=== PATIENT | male | born 1990 | race Caucasian/White ===

== ENCOUNTER → 2018-07-20 11:22 | Outpatient (CLI) | payer MEDICAID, SELFPAY ==
[2018-07-20 13:52] LABS: Hematocrit 43.9 % (40-54); Hemoglobin 14.8 g/dl (13.0-16.5); Mean Corp Hgb Conc 33.7 g/gl (32-36); Mean Corpuscular Volume 83.1 fL (80-94); Mean Platelet Vol. 9.6 fl (6.2-12.0); Platelet Count 199 K/mm3 (150-450); RBC Distribution Width CV 12.8 % (11.6-14.6); RBC Distribution Width SD 38.8 fl (35.1-43.9); Red Blood Count 5.28 M/mm3 (4.6-6.2); White Blood Count 6.5 K/mm3 (4.4-11.0)
[2018-07-20 13:55] LABS: Scan Indicated on CBC? Y/N NO
[2018-07-20 14:15] LABS: AST(SGOT) 44 U/L (15-37); Alanine Aminotransfer ALT/SGPT 85 U/L (16-61); Albumin, Serum 3.9 g/dL (3.2-5.0); Alkaline Phosphatase 54 U/L (45-117); Anion Gap 11 (5-15); BUN 15 mg/dL (7-18); BUN/Creat Ratio 13.6 RATIO (10-20); Calcium,Total 8.8 mg/dL (8.5-10.1); Chloride 104 mmol/L (98-107); Cholesterol 215 mg/dL (200); EST Glomerular Filtration Rate 86 mL/min (>60); Est Glom Filt Rate - Afr Amer 104 mL/min (>60); Globulin 3.9 g/dL (2.2-4.2); Glucose 75 mg/dL (74-106); High Density Lipoprotein 39 mg/dL; Potassium 3.7 mmol/L (3.5-5.1); Protein, Total 7.8 g/dL (6.4-8.2); Sodium Level 143 mmol/L (136-145); Triglycerides 195 mg/dL; Very Low Density Lipoprotein 39 mg/dL (5-40)
== END ==
LOC: MTRAD 11:28 → MTLAB 11:31
PROVIDERS: Family Provider Family Medicine; PCP Family Medicine; Referring Provider Family Medicine; Visit Provider Family Medicine
DX: Z00.00 Encounter for general adult medical examination without abnormal findings (principal); G40.909 Epilepsy, unspecified, not intractable, without status epilepticus
CPT/HCPCS: 36415; 80053; 80061; 85027

== ENCOUNTER 2018-08-15 21:52 | Observation (INO) | payer MEDICAID, SELFPAY ==
[2018-08-15 21:52] VITALS: BP 161/103; PULSE 116; RESP 19; TEMP 36.1; O2SAT 98; BMI 40.8
[2018-08-15 22:00] VITALS: O2SAT 97
[2018-08-15 22:08] VITALS: TEMP 37.4
--- NOTE | 2018-08-15 22:16 | EKG12_ITS ---
Test Reason : COLD SX Blood Pressure : / mmHG Vent. Rate : 106 BPM Atrial Rate : 106 BPM P-R Int : 178 ms QRS Dur : 092 ms QT Int : 332 ms P-R-T Axes : 009 116 010 degrees QTc Int : 441 ms Sinus tachycardia Possible Left atrial enlargement Right axis deviation Incomplete right bundle branch block Possible Right ventricular hypertrophy Abnormal ECG Confirmed by JAY LYLE, TATIANA ([id number]), publishing editor KATELYN MALDONADO ([id number]) on 08/17/2018 2:19:11 PM Referred By: [email or web address] Confirmed By:TATIANA THOMPSON MD
--- NOTE | 2018-08-15 22:20 | ED.DCSUM_ITS ---
- ER Visit Summary Date of Service: 08/15/18 Chief Complaint: Shortness of breath History of Present Illness: The patient is a 27 M who presents for shortness of breath. Yesterday evening patient developed a headache and a fever. Today he is feeling short of breath, and has had a cough productive of brown and green sputum. Patient has associated chest pain, palpitations and feels like his heart is racing. He has been nauseated. He has had a runny nose but denies sore throat or abdominal pain. No urinary symptoms or diarrhea. Patient has history of hypertension, seizure disorder, neuropathy, and takes Geodon, gabapentin and Lamictal. Physical Examination: Vital signs: afebrile, hemodynamically stable, 92% on room air General: well nourished, well developed, in no distress Skin: warm, dry, no rash, no pallor HEENT: normocephalic and atraumatic; PERRL, EOMI, dry mucous membranes, no oropharyngeal lesions or posterior oropharyngeal swelling or exudates noted Cardiovascular: Tachycardic rate and rhythm without murmurs, no peripheral edema, 2+ pulses all distal extremities Respiratory: No increased work of breathing, lungs are diminished on the right, no rales, rhonchi or wheezing appreciated Abdominal: Abdomen is soft, nontender with normoactive bowel sounds, no guarding or rebound, no masses MSK: Moves all extremities, no deformities, normal strength Neuro: Awake and alert, oriented ?4. No facial droop, sensation and motor function intact and symmetric Test Results: Abnormal Lab Results 08/15/18 08/15/18 08/15/18 22:29 22:29 22:29 WBC 13.0 H RBC 5.33 Hgb 15.0 Hct 44.5 MCV 83.5 MCH 28.1 MCHC 33.7 RDW 12.8 RDW Differential 38.5 Plt Count 159 MPV 9.4 Immature Gran % (Auto) 0.200 Neut % (Auto) 72.6 H Lymph % (Auto) 12.7 L [place] % (Auto) 10.6 H Eos % (Auto) 3.7 Baso % (Auto) 0.2 Absolute Neuts (auto) 9.4 H Absolute Lymphs (auto) 1.65 Total Counted Not Reportable PT 12.6 INR 0.9 APTT 29.6 Sodium 138 Potassium 3.5 Chloride 105 Carbon Dioxide 25.0 Anion Gap 8 BUN 8 Creatinine 0.96 Estim Creat Clear Calc 132.94 Est GFR (MDRD) Af Amer 122 Est GFR (MDRD) Non-Af 101 BUN/Creatinine Ratio 8.3 L Glucose 98 Lactic Acid Calcium 8.6 Total Bilirubin 0.50 AST 27 ALT 55 Alkaline Phosphatase 64 Troponin I < 0.015 Total Protein 8.0 Albumin 3.9 Globulin 4.1 Albumin/Globulin Ratio 1.0 08/15/18 22:29 WBC RBC Hgb Hct MCV MCH MCHC RDW RDW Differential Plt Count MPV Immature Gran % (Auto) Neut % (Auto) Lymph % (Auto) [place] % (Auto) Eos % (Auto) Baso % (Auto) Absolute Neuts (auto) Absolute Lymphs (auto) Total Counted PT INR APTT Sodium Potassium Chloride Carbon Dioxide Anion Gap BUN Creatinine Estim Creat Clear Calc Est GFR (MDRD) Af Amer Est GFR (MDRD) Non-Af BUN/Creatinine Ratio Glucose Lactic Acid 1.3 Calcium Total Bilirubin AST ALT Alkaline Phosphatase Troponin I Total Protein Albumin Globulin Albumin/Globulin Ratio Clinical Impression(s) from Imaging Studies Chest X-Ray 08/15/18 22:35 IMPRESSION: Mild cardiomegaly and pulmonary congestion. Electronically Signed: Fernanda Espinoza MD at 0:33 EST , Service support , Chest CTA 08/16/18 01:00 IMPRESSION: 1. Technically limited enhancement of the pulmonary arteries. 2. No CTA demonstrated large or central pulmonary embolism or arterial dissection. 3. Subsegmental pulmonary emboli are not excluded. 4. Cardiomegaly. Electronically Signed: Fernanda Espinoza MD at 2:09 EST , Service support , Medications Given Sodium Chloride () 1,000 mls @ 999 mls/hr IV .Q1H1M CANDICE Last Admin: 08/15/18 22:46 Dose: 999 mls/hr Discontinued Medications Enoxaparin Sodium (Lovenox) 120 mg SC X1 ONE Stop: 08/16/18 02:20 Emergency Department Course and Treatment: Patient presents tachycardic complaining of shortness of breath and fever at home. Oxygen saturation 92% on room air. Patient was placed on nasal cannula. Patient had leukocytosis of 13. Troponin negative. EKG showed a right bundle branch morphology, rate of 106. Lactate normal at 1.3. Flu negative. Chest x-ray showed cardiomegaly and pulmonary prominence, without any sign of pneumonia. Because patient is tachycardic, short of breath, and borderline hypoxic at rest with the chest x- ray findings and a right heart strain pattern on EKG, CTA was performed to evaluate for pulmonary embolism. It was a suboptimal contrast bolus and showed no obvious pulmonary embolism, but PE could not be excluded. Patient was empirically treated with Lovenox. He remains short of breath, tachypneic, borderline tachycardic, and O2 sat at rest 91-93%. Patient will benefit from admission for further workup of his symptoms and concern for pulmonary embolism versus respiratory infection. Because of no sign of pneumonia, antibiotics were not empirically started. Treatment Plan: [] Disposition: [] Impression: Shortness of breath, hypoxia, concern for pulmonary embolism This note was generated with [employer] dictation software. It may contain incorrect words, spelling, and punctuation that were not noted in review of the chart prior to signing ED Disposition - Plan for ED Patient: Chief Complaint: Cold Sx Referrals: Pavan Maharaj MD [Primary Care Provider] -
--- NOTE | 2018-08-15 22:27 | ED.RN ---
NO OLD EKGS IN MUSE
--- NOTE | 2018-08-15 22:35 | RAD_ITS ---
STUDY: X-RAY CHEST REASON FOR EXAM: Male, 27 years old. Shortness of breath. TECHNIQUE: PA and lateral views of the chest. COMPARISON: June 10, 2013. FINDINGS: The lungs are mildly underexpanded. There is perihilar interstitial thickening. There is no demonstrated pleural abnormality. There is mild cardiac enlargement. Normal mediastinum and julián. There is prominence of the pulmonary hilar arteries without peripheral pulmonary vascular congestion. Normal visualized aortic arch and descending thoracic aorta. Normal visualized thoracic spine. Normal visualized ribs, clavicles, and shoulders. There is no demonstrated abnormality of the visualized soft tissue structures of the upper abdomen. RAD/Chest PA and Lateral IMPRESSION: Mild cardiomegaly and pulmonary congestion. Electronically Signed: Fernanda Espinoza MD at 0:33 EST , Service support ,
[2018-08-15 22:39] VITALS: BP 152/98; PULSE 104; RESP 15; O2SAT 92
[2018-08-15 22:41] LABS: Absolute Lymphocyte Count 1.65 X10^3/ul (0.83-4.51); Absolute Neutrophil Count 9.4 X10^3/uL (2.0-7.7); Basophil# 0.02 X10^3/uL; Basophil% 0.2 % (0-1); Eosinophil# 0.48 X10^3/uL; Eosinophils% 3.7 % (0-5); Hematocrit 44.5 % (40-54); Lymphocyte # 1.65 X10^3/ul (4.0); Lymphocyte % 12.7 % (19-41); Mean Corp Hgb Conc 33.7 g/gl (32-36); Mean Corpuscular Hgb 28.1 pg (27.0-32.0); Mean Corpuscular Volume 83.5 fL (80-94); Mean Platelet Vol. 9.4 fl (6.2-12.0); Monocyte# 1.38 X10^3/uL; Monocyte% 10.6 % (0-10); Neutrophil # 9.44 X10^3/uL (2.7-7.7); Neutrophil % 72.6 % (47-70); Platelet Count 159 K/mm3 (150-450); RBC Distribution Width CV 12.8 % (11.6-14.6); RBC Distribution Width SD 38.5 fl (35.1-43.9); Red Blood Count 5.33 M/mm3 (4.6-6.2)
[2018-08-15] MEDS: 0.9% Normal Saline 1,000 ML 999 ML IV (22:46)
[2018-08-15 22:54] LABS: POSITIVE COUNT NO; POSITIVE DIFFERENTIAL NO; POSITIVE MORPHOLOGY NO
[2018-08-15 22:57] LABS: AST(SGOT) 27 U/L (15-37); Alanine Aminotransfer ALT/SGPT 55 U/L (16-61); Albumin, Serum 3.9 g/dL (3.2-5.0); Alkaline Phosphatase 64 U/L (45-117); Anion Gap 8 (5-15); BUN 8 mg/dL (7-18); BUN/Creat Ratio 8.3 RATIO (10-20); Calcium,Total 8.6 mg/dL (8.5-10.1); Chloride 105 mmol/L (98-107); Creatinine, Serum 0.96 mg/dL (0.70-1.30); EST Glomerular Filtration Rate 101 mL/min (>60); Est Glom Filt Rate - Afr Amer 122 mL/min (>60); Estimated Creatinine Clearance 132.94 ml/min; Globulin 4.1 g/dL (2.2-4.2); Glucose 98 mg/dL (74-106); Potassium 3.5 mmol/L (3.5-5.1); Sodium Level 138 mmol/L (136-145)
[2018-08-15 22:58] LABS: International Normalized Ratio 0.9; Prothrombin Time (Protime)PT. 12.6 SECONDS (11.7-14.9)
[2018-08-15 22:59] LABS: Partial Thromboplast Time 29.6 Seconds (24.1-36.2)
[2018-08-15 23:37] LABS: Lactic Acid 1.3 mmol/L (0.4-2.0)
[2018-08-16] VITALS (19 sets, daily range): BP systolic 128–153; BP diastolic 79–106; PULSE 75–101; RESP 16–22; TEMP 36.7–37.1; O2SAT 92–96; BMI 43.9; BMI 44.0
--- NOTE | 2018-08-16 01:00 | CT_ITS ---
STUDY: CTA CHEST REASON FOR EXAM: Male, 27 years old. Dyspnea. RADIATION DOSAGE (If Supplied By Facility): CTDIvol = ( 15.06 ) mGy, DLP = ( 631.14 ) mGycm TECHNIQUE: The examination was performed with the intravenous administration of 100 ml of Isovue 370 contrast material. Post-processing of the angiographic images was performed, with multiplanar reformation and 3D reconstruction. Individualized dose optimization techniques were used for this CT. COMPARISON: Prior comparison studies are not available for review at this time. FINDINGS: There is limited enhancement of the main pulmonary artery and right and left pulmonary arteries. There is limited enhancement of the bilateral peripheral pulmonary arteries. There is no demonstrated larger central pulmonary embolism. Segmental pulmonary emboli are not excluded. There is prominence of the main pulmonary arteries without peripheral pulmonary vascular congestion. Normal thoracic aorta and visualized great vessels. There is no demonstrated aortic dissection. There is cardiomegaly. There are visualized mediastinal lymph nodes, which are within normal size limits, and with normal morphology. Normal hilar regions. Normal visualized trachea and bronchi. The lungs are well expanded. Normal pulmonary parenchyma. Normal pleura. Normal chest wall structures. Normal osseous structures. Normal visualized upper abdomen. CT/CTA Chest W/WO Contrast IMPRESSION: 1. Technically limited enhancement of the pulmonary arteries. 2. No CTA demonstrated large or central pulmonary embolism or arterial dissection. 3. Subsegmental pulmonary emboli are not excluded. 4. Cardiomegaly. Electronically Signed: Fernanda Espinoza MD at 2:09 EST , Service support ,
--- NOTE | 2018-08-16 02:22 | PCM.HP.STD ---
Problem List (1) Acute viral syndrome Status: Acute (2) Elevated BP without diagnosis of hypertension Status: Acute (3) Morbid obesity Status: Chronic (4) BERRY (obstructive sleep apnea) Status: Chronic (5) Seizure disorder Status: Chronic (6) Asperger's disorder Status: Chronic (7) Anxiety and depression Status: Chronic History of Present Illness Date of Admission: 08/16/18 Chief Complaint: URI symptoms, dyspnea. The patient is a 27 y/o M w/ PMHx: Asperger's, Anxiety and Depression/Bipolar disorder, BERRY, Seizure disorder, GERD, Morbid Obesity who presents to the [facility] ED on 08/16/18 with history of progressively worsening dyspnea, upper respiratory symptoms with productive cough, congestion, rhinorrhea, myalgia, arthralgias as well as fever which initially started this past in addition to onset nausea without emesis and poor appetite/intake on day prior to ED presentation. In the ED work-up included T 96.9, heart rate 116, BP 161/103, respiratory rate 19, 98% on room air--> 92% on room air--> heart rate 97, BP 140/106, respiratory rate 22, 95% on 4 L nasal cannula, CBC with WBC 13, hemoglobin 15, platelet 159 with left shift, unremarkable coags, unremarkable CMP, lactic acid 1.3, troponin <0.015, CXR with cardiomegaly and pulmonary congestion, CTPA with limited enhancement of the pulmonary arteries with no evidence of acute PE with suboptimal contract infusion, cardiomegaly, EKG w/ RBBB. In the ED patient administered normal saline, Lovenox. Past Medical History Past Medical History (Chronic Problems): Chronic Problems Morbid obesity (Chronic) BERRY (obstructive sleep apnea) (Chronic) Seizure disorder (Chronic) Asperger's disorder (Chronic) Anxiety and depression (Chronic) Allergies aripiprazole [From Abilify] Adverse Reaction (Verified 08/15/18 21:53) Other cephalexin monohydrate [From Keflex] Adverse Reaction (Verified 08/15/18 21:53) Other Home Medications: Ambulatory Orders Medication Instructions Recorded Lamictal 200 mg PO DAILY 07/24/15 Pantoprazole Sodium [Protonix] 40 mg PO DAILY 07/24/15 Ziprasidone HCl [Geodon] 80 mg PO BID 07/24/15 Fexofenadine HCl 180 mg PO DAILY 08/15/18 Gabapentin [Neurontin] 1 tab PO TID 08/16/18 Lamotrigine [Lamotrigine ER] 300 mg PO DAILY 08/16/18 Surgical History: no surgical history Psychiatric History: Anxiety, Bipolar, Depression Lives: With Family Smoking Status: Never smoker Tobacco Use: Non-smoker Alcohol: None Drugs: None - *Family History Maternal History Items: Heart Disease - Mother w/ history of PAF s/p ablation. Paternal History Items: Hypertension Review of Systems Constitutional: Reports: Anorexia, Fever, Malaise, Weakness, Fatigue. Denies: Chills, Weight Change HEENT: Reports: Head Aches, Post Nasal Drip, Sinus Congestion, Sinus Drainage, Sore Throat Cardiovascular: Reports: Light Headedness, Palpitations. Denies: Chest Pain Respiratory: Reports: Shortness of breath upon exertion, Sputum production. Denies: Shortness of breath at rest Gastrointestinal: Reports: Nausea. Denies: Abdominal Pain, Vomiting Genitourinary: Denies: Dysuria Musculoskeletal: Reports: Back Pain, Joint Pain, Muscle pain. Denies: Joint Tenderness Skin: Denies: Rash, Wounds Neurological: Denies: Numbness, Tingling, Focal weakness Psychiatric: Reports: Anxiety, Depression. Denies: Homicidal Ideations, Suicidal Ideations Hematologic/ Lymphatic: Denies: Easy Bruising, Easy Bleeding VTE Information - Inpt Only VTE Present on Admission: No VTE Mechan Device Prophylaxis: SCD's VTE Pharm Prophylaxis ordered?: Yes Patient Problems: Active and Suspected Problems Acute viral syndrome (Acute) Elevated BP without diagnosis of hypertension (Acute) Subjective: Seated upright in the ED bed, fatigued, flushed, hoarse voice. Objective: Physical Examination: General: awake, alert, oriented x 3 and cooperative, seated upright in the ED bed, fatigued, flushed appearance. Skin: Flushed color, turgor, no icterus, cyanosis. HEENT: AT/NC, EOMI, PERRLA, dry MM, no carotid bruits or JVD noted. Lungs: Diminished breath sounds throughout, greater bilateral bases, mild effort, no rales, ronchi or wheezing. Heart: Tachycardic with regular rhythm; no gallop, rub audible. Abdomen: soft, obese, NTTP, ND, normal BS, no HSM; ever, habitus makes examination difficult. Extremities: no cyanosis, clubbing, or edema. Neurological: patient awake, alert, oriented x 3; cognitive function intact; pupils equally reactive to light and accomodation; cranial nerves II-XII grossly normal, moving all 4 extremities, no focal deficits, strength moderately to severely globally decreased secondary to acute presentation Psychiatric: affect appears fatigued, irritable, no acute evidence of depressive or anxiety feelings. - Physical Exam Vital Signs Temp Pulse Resp BP Pulse Ox 99.3 F H 97 22 H 140/106 H 95 08/15/18 22:08 08/16/18 00:20 08/16/18 00:20 08/16/18 00:20 08/16/18 00:20 Oxygen Flow Rate (L/min) 4 Oxygen Delivery Method Nasal Cannula Weight: 310 lb Body Mass Index (BMI) 40.8 Microbiology Past 72 Hours 08/16/18 01:05 Influenza Types A,B Direct FA (PHUONG) - Final Mucosa - Nasopharyngeal Laboratory Tests Past 24 Hrs 08/15/18 08/15/18 08/15/18 22:29 22:29 22:29 WBC 13.0 H RBC 5.33 Hgb 15.0 Hct 44.5 MCV 83.5 MCH 28.1 MCHC 33.7 RDW 12.8 RDW Differential 38.5 Plt Count 159 MPV 9.4 Immature Gran % (Auto) 0.200 Neut % (Auto) 72.6 H Lymph % (Auto) 12.7 L [place] % (Auto) 10.6 H Eos % (Auto) 3.7 Baso % (Auto) 0.2 Absolute Neuts (auto) 9.4 H Absolute Lymphs (auto) 1.65 Total Counted Not Reportable PT 12.6 INR 0.9 APTT 29.6 Sodium 138 Potassium 3.5 Chloride 105 Carbon Dioxide 25.0 Anion Gap 8 BUN 8 Creatinine 0.96 Estim Creat Clear Calc 132.94 Est GFR (MDRD) Af Amer 122 Est GFR (MDRD) Non-Af 101 BUN/Creatinine Ratio 8.3 L Glucose 98 Lactic Acid Calcium 8.6 Total Bilirubin 0.50 AST 27 ALT 55 Alkaline Phosphatase 64 Troponin I < 0.015 Total Protein 8.0 Albumin 3.9 Globulin 4.1 Albumin/Globulin Ratio 1.0 08/15/18 22:29 WBC RBC Hgb Hct MCV MCH MCHC RDW RDW Differential Plt Count MPV Immature Gran % (Auto) Neut % (Auto) Lymph % (Auto) [place] % (Auto) Eos % (Auto) Baso % (Auto) Absolute Neuts (auto) Absolute Lymphs (auto) Total Counted PT INR APTT Sodium Potassium Chloride Carbon Dioxide Anion Gap BUN Creatinine Estim Creat Clear Calc Est GFR (MDRD) Af Amer Est GFR (MDRD) Non-Af BUN/Creatinine Ratio Glucose Lactic Acid 1.3 Calcium Total Bilirubin AST ALT Alkaline Phosphatase Troponin I Total Protein Albumin Globulin Albumin/Globulin Ratio Assessment/Plan All Active Problems Acute viral syndrome (Acute) Elevated BP without diagnosis of hypertension (Acute) The patient is a 27 y/o M w/ PMHx: Asperger's, Anxiety and Depression, BERRY, Seizure disorder, GERD, Morbid Obesity who presents to the [facility] ED on 08/16/18 with history of progressively worsening dyspnea, upper respiratory symptoms with productive cough, congestion, rhinorrhea, myalgia, arthralgias as well as fever. (1) Acute Sepsis secondary to General Malaise, Cough, Fever, General Debility secondary to Acute Viral Syndrome, Possibly Influenza: ED work-up included T 96.9, heart rate 116, BP 161/103, respiratory rate 19, 98% on room air--> 92% on room air--> heart rate 97, BP 140/106, respiratory rate 22, 95% on 4 L nasal cannula, CBC with WBC 13, hemoglobin 15, platelet 159 with left shift, unremarkable coags, unremarkable CMP, lactic acid 1.3, troponin <0.015, CXR with cardiomegaly and pulmonary congestion, CTPA with limited enhancement of the pulmonary arteries with no evidence of acute PE with suboptimal contract infusion, cardiomegaly, EKG w/ RBBB, rapid influenza negative. Will admit to PCU given need to potentially repeat CTPA as poor enhancement, maintain on oxygen with wean as tolerated, continue ATC duonebs, PRN albuterol, HOB, IS parameters w/ pending Bld cx x 2 from ED. Respiratory viral panel requested. (2) Possible Pulmonary Embolism, Lower suspicion for acute presentation: CTPA with limited enhancement of the pulmonary arteries with no evidence of acute PE, cardiomegaly, given suboptimal study, will continue ED initiated therapeutic lovenox pending further evaluation for above noted #1, BL LE DVT US pending. If further concern true PE will plan to add ECHO request. (3) Elevated BP without Dx HTN: ED presentation w/ elevated BP > 140/90, continue to monitor and if remains elevated would initiate ACEI, PRN hydralazine in interim. (4) Seizure disorder: Continue home lamotrigine regimen. (5) Morbid Obesity: Weight loss and lifestyle changes encouraged, nutrition consulted. (6) Anxiety and Depression/Bipolar disorder: Continue home geodon regimen. Family does not that he does have anger and psychotic tendencies. (7) BERRY: CPAP q HS. (8) GERD: PPI. (9) DVT Prophylaxis: SCDs, therapeutic lovenox. Code Visit OBSV E&M: [id number] Initial observation care L3
--- NOTE | 2018-08-16 02:32 | HP.PCM_ITS ---
Problem List (1) Acute viral syndrome Status: Acute (2) Elevated BP without diagnosis of hypertension Status: Acute (3) Morbid obesity Status: Chronic (4) BERRY (obstructive sleep apnea) Status: Chronic (5) Seizure disorder Status: Chronic (6) Asperger's disorder Status: Chronic (7) Anxiety and depression Status: Chronic History of Present Illness Date of Admission: 08/16/18 Chief Complaint: URI symptoms, dyspnea. The patient is a 27 y/o M w/ PMHx: Asperger's, Anxiety and Depression/Bipolar disorder, BERRY, Seizure disorder, GERD, Morbid Obesity who presents to the [facility] ED on 08/16/18 with history of progressively worsening dyspnea, upper respiratory symptoms with productive cough, congestion, rhinorrhea, myalgia, arthralgias as well as fever which initially started this past in addition to onset n ausea without emesis and poor appetite/intake on day prior to ED presentation. In the ED work-up included T 96.9, heart rate 116, BP 161/103, respiratory rate 19, 98% on room air--> 92% on room air--> heart rate 97, BP 140/106, respiratory rate 22, 95% on 4 L nasal cannula, CBC with WBC 13, hemoglobin 15, platelet 159 with left shift, unremarkable coags, unremarkable CMP, lactic acid 1.3, troponin <0.015, CXR with cardiomegaly and pulmonary congestion, CTPA with limited enhancement of the pulmonary arteries with no evidence of acute PE with suboptimal contract infusion, cardiomegaly, EKG w/ RBBB. In the ED patient administered normal saline, Lovenox. Past Medical History Past Medical History (Chronic Problems): Chronic Problems Morbid obesity (Chronic) BERRY (obstructive sleep apnea) (Chronic) Seizure disorder (Chronic) Asperger's disorder (Chronic) Anxiety and depression (Chronic) Allergies aripiprazole [From Abilify] Adverse Reaction (Verified 08/15/18 21:53) Other cephalexin monohydrate [From Keflex] Adverse Reaction (Verified 08/15/18 21:53) Other Home Medications: Ambulatory Orders Medication Instructions Recorded Lamictal 200 mg PO DAILY 07/24/15 Pantoprazole Sodium [Protonix] 40 mg PO DAILY 07/24/15 Ziprasidone HCl [Geodon] 80 mg PO BID 07/24/15 Fexofenadine HCl 180 mg PO DAILY 08/15/18 Gabapentin [Neurontin] 1 tab PO TID 08/16/18 Lamotrigine [Lamotrigine ER] 300 mg PO DAILY 08/16/18 Surgical History: no surgical history Psychiatric History: Anxiety, Bipolar, Depression Lives: With Family Smoking Status: Never smoker Tobacco Use: Non-smoker Alcohol: None Drugs: None - *Family History Maternal History Items: Heart Disease - Mother w/ history of PAF s/p ablation. Paternal History Items: Hypertension Review of Systems Constitutional: Reports: Anorexia, Fever, Malaise, Weakness, Fatigue. Denies: Chills, Weight Change HEENT: Reports: Head Aches, Post Nasal Drip, Sinus Congestion, Sinus Drainage, Sore Throat Cardiovascular: Reports: Light Headedness, Palpitations. Denies: Chest Pain Respiratory: Reports: Shortness of breath upon exertion, Sputum production. Denies: Shortness of breath at rest Gastrointestinal: Reports: Nausea. Denies: Abdominal Pain, Vomiting Genitourinary: Denies: Dysuria Musculoskeletal: Reports: Back Pain, Joint Pain, Muscle pain. Denies: Joint Tenderness Skin: Denies: Rash, Wounds Neurological: Denies: Numbness, Tingling, Focal weakness Psychiatric: Reports: Anxiety, Depression. Denies: Homicidal Ideations, Suicidal Ideations Hematologic/ Lymphatic: Denies: Easy Bruising, Easy Bleeding VTE Information - Inpt Only VTE Present on Admission: No VTE Mechan Device Prophylaxis: SCD's VTE Pharm Prophylaxis ordered?: Yes Patient Problems: Active and Suspected Problems Acute viral syndrome (Acute) Elevated BP without diagnosis of hypertension (Acute) Subjective: Seated upright in the ED bed, fatigued, flushed, hoarse voice. Objective: Physical Examination: General: awake, alert, oriented x 3 and cooperative, seated upright in the ED bed, fatigued, flushed appearance. Skin: Flushed color, turgor, no icterus, cyanosis. HEENT: AT/NC, EOMI, PERRLA, dry MM, no carotid bruits or JVD noted. Lungs: Diminished breath sounds throughout, greater bilateral bases, mild effort, no rales, ronchi or wheezing. Heart: Tachycardic with regular rhythm; no gallop, rub audible. Abdomen: soft, obese, NTTP, ND, normal BS, no HSM; ever, habitus makes examination difficult. Extremities: no cyanosis, clubbing, or edema. Neurological: patient awake, alert, oriented x 3; cognitive function intact; p upils equally reactive to light and accomodation; cranial nerves II-XII grossly normal, moving all 4 extremities, no focal deficits, strength moderately to severely globally decreased secondary to acute presentation Psychiatric: affect appears fatigued, irritable, no acute evidence of depressive or anxiety feelings. - Physical Exam Vital Signs Temp Pulse Resp BP Pulse Ox 99.3 F H 97 22 H 140/106 H 95 08/15/18 22:08 08/16/18 00:20 08/16/18 00:20 08/16/18 00:20 08/16/18 00:20 Oxygen Flow Rate (L/min) 4 Oxygen Delivery Method Nasal Cannula Weight: 310 lb Body Mass Index (BMI) 40.8 Microbiology Past 72 Hours 08/16/18 01:05 Influenza Types A,B Direct FA (PHUONG) - Final Mucosa - Nasopharyngeal Laboratory Tests Past 24 Hrs 08/15/18 08/15/18 08/15/18 22:29 22:29 22:29 WBC 13.0 H RBC 5.33 Hgb 15.0 Hct 44.5 MCV 83.5 MCH 28.1 MCHC 33.7 RDW 12.8 RDW Differential 38.5 Plt Count 159 MPV 9.4 Immature Gran % (Auto) 0.200 Neut % (Auto) 72.6 H Lymph % (Auto) 12.7 L [place] % (Auto) 10.6 H Eos % (Auto) 3.7 Baso % (Auto) 0.2 Absolute Neuts (auto) 9.4 H Absolute Lymphs (auto) 1.65 Total Counted Not Reportable PT 12.6 INR 0.9 APTT 29.6 Sodium 138 Potassium 3.5 Chloride 105 Carbon Dioxide 25.0 Anion Gap 8 BUN 8 Creatinine 0.96 Estim Creat Clear Calc 132.94 Est GFR (MDRD) Af Amer 122 Est GFR (MDRD) Non-Af 101 BUN/Creatinine Ratio 8.3 L Glucose 98 Lactic Acid Calcium 8.6 Total Bilirubin 0.50 AST 27 ALT 55 Alkaline Phosphatase 64 Troponin I < 0.015 Total Protein 8.0 Albumin 3.9 Globulin 4.1 Albumin/Globulin Ratio 1.0 08/15/18 22:29 WBC RBC Hgb Hct MCV MCH MCHC RDW RDW Differential Plt Count MPV Immature Gran % (Auto) Neut % (Auto) Lymph % (Auto) [place] % (Auto) Eos % (Auto) Baso % (Auto) Absolute Neuts (auto) Absolute Lymphs (auto) Total Counted PT INR APTT Sodium Potassium Chloride Carbon Dioxide Anion Gap BUN Creatinine Estim Creat Clear Calc Est GFR (MDRD) Af Amer Est GFR (MDRD) Non-Af BUN/Creatinine Ratio Glucose Lactic Acid 1.3 Calcium Total Bilirubin AST ALT Alkaline Phosphatase Troponin I Total Protein Albumin Globulin Albumin/Globulin Ratio Assessment/Plan All Active Problems Acute viral syndrome (Acute) Elevated BP without diagnosis of hypertension (Acute) The patient is a 27 y/o M w/ PMHx: Asperger's, Anxiety and Depression, BERRY, Seizure disorder, GERD, Morbid Obesity who presents to the [facility] ED on 08/16/18 with history of progressively worsening dyspnea, upper respiratory symptoms with productive cough, congestion, rhinorrhea, myalgia, arthralgias as well as fever. (1) Acute Sepsis secondary to General Malaise, Cough, Fever, General Debility secondary to Acute Viral Syndrome, Possibly Influenza: ED work-up included T 96.9, heart rate 116, BP 161/103, respiratory rate 19, 98% on room air--> 92% on room air--> heart rate 97, BP 140/106, respiratory rate 22, 95% on 4 L nasal cannula, CBC with WBC 13, hemoglobin 15, platelet 159 with left shift, unremarkable coags, unremarkable CMP, lactic acid 1.3, troponin <0.015, CXR with cardiomegaly and pulmonary congestion, CTPA with limited enhancement of the pulmonary arteries with no evidence of acute PE with suboptimal contract infusion, cardiomegaly, EKG w/ RBBB, rapid influenza negative. Will admit to PCU given need to potentially repeat CTPA as poor enhancement, maintain on oxygen with wean as tolerated, continue ATC duonebs, PRN albuterol, HOB, IS parameters w/ pending Bld cx x 2 from ED. Respiratory viral panel requested. (2) Possible Pulmonary Embolism, Lower suspicion for acute presentation: CTPA with limited enhancement of the pulmonary arteries with no evidence of acute PE, cardiomegaly, given suboptimal study, will continue ED initiated therapeutic lovenox pending further evaluation for above noted #1, BL LE DVT US pending. If further concern true PE will plan to add ECHO request. (3) Elevated BP without Dx HTN: ED presentation w/ elevated BP > 140/90, c ontinue to monitor and if remains elevated would initiate ACEI, PRN hydralazine in interim. (4) Seizure disorder: Continue home lamotrigine regimen. (5) Morbid Obesity: Weight loss and lifestyle changes encouraged, nutrition consulted. (6) Anxiety and Depression/Bipolar disorder: Continue home geodon regimen. Family does not that he does have anger and psychotic tendencies. (7) BERRY: CPAP q HS. (8) GERD: PPI. (9) DVT Prophylaxis: SCDs, therapeutic lovenox. Code Visit OBSV E&M: 12066 Initial observation care L3
--- NOTE | 2018-08-16 03:13 | VDLE_ITS ---
Reason For Study: PE RIGHT LEFT GSV is normal. GSV is normal. CFV is compressible, spontaneous, phasic, CFV is compressible, spontaneous, phasic, competent and demonstrates normal competent, and demonstrates normal augmentation. augmentation. FV is compressible, spontaneous, phasic, FV is compressible, spontaneous, phasic, competent and demonstrates normal competent and demonstrates normal augmentation. augmentation. POP V is compressible, spontaneous, phasic, POP V is compressible, spontaneous, phasic, competent and demonstrates normal competent and demonstrates normal augmentation. augmentation. T/P Trunk is compressible. T/P Trunk is compressible. PTV is compressible. PTV is compressible. RT PerV is compressible. LT PerV is compressible. Procedure Exam performed portable in patient room. The exam was diagnostic. A preliminary report was called and/or faxed to [facility]. <> Interpretation Summary No evidence for acute deep venous thrombosis bilateral lower extremities with patent and compressible bilateral great saphenous veins. Ordering Physician: Pricilla Torrez Referring Physician: Yuri Maharaj Performed By: Elsa Fraser, EVERARDO, RVT
[2018-08-16] MEDS: Enoxaparin 150 MG/ML Syringe SC (04:13)
[2018-08-16] MEDS: 0.9% Normal Saline 1,000 ML 125 ML IV ×2 (04:13→16:46)
--- NOTE | 2018-08-16 04:49 | CPS ---
patient informed RT that he wears cpap at home of 10 cmh20 with large full mask.
[2018-08-16] MEDS: Ipratropium/Albuterol Sulfate 3 ML AMPUL.NEB INHALATION ×4 (07:26→18:55)
[2018-08-16] MEDS: HYDROcodone Bitartrate/Apap 5/325 Tablet PO ×2 (07:54→10:23)
[2018-08-16] MEDS: Gabapentin 100 MG Capsule PO ×2 (08:55→16:59)
[2018-08-16] MEDS: Loratadine 10 MG Tablet PO (08:55)
[2018-08-16] MEDS: Pantoprazole Sodium 40 MG Tablet PO (08:55)
--- NOTE | 2018-08-16 09:24 | NURSING ---
report given to Angela NGUYEN
[2018-08-16] MEDS: 0.9% NaCl Peripheral Flush Adult/Peds IV ×2 (09:50→16:46)
[2018-08-16] MEDS: Ziprasidone HCl 20 MG Capsule 80 MG PO ×2 (10:44→16:59)
--- NOTE | 2018-08-16 12:22 | PCM.PN.HOSP ---
Patient Problems: Active and Suspected Problems Acute viral syndrome (Acute) Elevated BP without diagnosis of hypertension (Acute) Subjective: Patient seen and examined. He has no complaints this morning. He denies fever, chills, cough, chest pain, abdominal pain, diarrhea or vomiting. Review of systems is otherwise negative. labs and vitals reviewed. Vitals/I&O's: Vital Signs Temp Pulse Resp BP Pulse Ox 98.6 F 82 20 H 128/82 H 92 08/16/18 09:21 08/16/18 11:11 08/16/18 11:11 08/16/18 09:21 08/16/18 09:21 Oxygen Flow Rate (L/min) 4 Oxygen Delivery Method Room Air Weight: 315 lb 7.704 oz Body Mass Index (BMI) 43.9 Intake and Output for Last 24 Hours 08/14/18 08/15/18 08/16/18 23:59 23:59 23:59 Intake Total 510 / 510 Balance 510 / 510 General: Alert, Oriented x3, Cooperative, No apparent distress HEENT: Atraumatic, PERRLA, EOMI, Normocephalic Oral: Moist Mucosa Neck: Supple, No JVD, Negative Carotid Bruits Lungs: Clear to auscultation, Normal air movement, No rhonchi, No wheeze, No rales Cardiovascular: Regular rate, Regular Rhythm, Normal S1, Normal S2, No murmurs Abdomen: Bowel Sounds Present, Soft, Non Tender, Non-Distended, No Hepato-splenomegaly Extremities: No clubbing, No cyanosis, No edema, Capillary Refill Less than 3 Seconds Skin: No rashes, No breakdown Musculoskeletal: No Tenderness to Palpation of Joints or Extremities Lymphatic: No Cervical, Supraclavicular, or Inguinal Adenopathy Neurological: Cranial nerves II-XII grossly intact, Neuro grossly intact, Motor Exam 5/5 strength throughout Psych/Mental Status: Normal Affect, Appropriate, Alert and oriented to time, place, person, mood and affect Microbiology Past 72 Hours 08/16/18 02:45 Mucosa - Nasopharyngeal Respiratory Panel (PCR) - Final Rhinovirus 08/16/18 01:05 Mucosa - Nasopharyngeal Influenza Types A,B Direct FA (PHUONG) - Final Laboratory Results 08/15/18 22:28: Magnesium 2.0 08/15/18 22:29: WBC 13.0 H, RBC 5.33, Hgb 15.0, Hct 44.5, MCV 83.5, MCH 28.1, MCHC 33.7, RDW 12.8, RDW Differential 38.5, Plt Count 159, MPV 9.4, Immature Gran % (Auto) 0.200, Neut % (Auto) 72.6 H, Lymph % (Auto) 12.7 L, [place] % (Auto) 10.6 H, Eos % (Auto) 3.7, Baso % (Auto) 0.2, Absolute Neuts (auto) 9.4 H, Absolute Lymphs (auto) 1.65, Total Counted Not Reportable 08/15/18 22:29: PT 12.6, INR 0.9, APTT 29.6 08/15/18 22:29: Sodium 138, Potassium 3.5, Chloride 105, Carbon Dioxide 25.0, Anion Gap 8, BUN 8, Creatinine 0.96, Estim Creat Clear Calc 132.94, Est GFR (MDRD) Af Amer 122, Est GFR (MDRD) Non-Af 101, BUN/Creatinine Ratio 8.3 L, Glucose 98, Calcium 8.6, Total Bilirubin 0.50, AST 27, ALT 55, Alkaline Phosphatase 64, Troponin I < 0.015, Total Protein 8.0, Albumin 3.9, Globulin 4.1, Albumin/Globulin Ratio 1.0 08/15/18 22:29: Lactic Acid 1.3 Diagnostic Data Chest X-Ray 08/15/18 22:35 IMPRESSION: Mild cardiomegaly and pulmonary congestion. Electronically Signed: Fernanda Espinoza MD at 0:33 EST , Service support , Chest CTA 08/16/18 01:00 IMPRESSION: 1. Technically limited enhancement of the pulmonary arteries. 2. No CTA demonstrated large or central pulmonary embolism or arterial dissection. 3. Subsegmental pulmonary emboli are not excluded. 4. Cardiomegaly. Electronically Signed: Fernanda Espinoza MD at 2:09 EST , Service support , Current Medications Acetaminophen (Tylenol) 650 mg PO Q6H PRN PRN PRN Reason: Non-cardiac pain (mod-severe) Hydrocodone Bitart/Acetaminophen ([place] 5mg-325mg) 1 - 2 tablet PO Q6H PRN PRN PRN Reason: Moderate-severe pain Last Admin: 08/16/18 10:23 Dose: 1 tablet Al Hydroxide/Mg Hydroxide (Mylanta Ii) 30 ml PO Q6H PRN PRN PRN Reason: Gastric burning Albuterol Sulfate (Ventolin Aerosols) 2.5 mg INHALATION Q2H PRN PRN PRN Reason: dyspnea, wheezing Albuterol/Ipratropium (Duoneb) 3 ml INHALATION Q4HWA.RT [facility] Last Admin: 08/16/18 11:11 Dose: 3 ml Enoxaparin Sodium (Lovenox) 150 mg SC Q12@0600,1800 [facility] Last Admin: 08/16/18 04:13 Dose: 150 mg Gabapentin (Neurontin) 100 mg PO 0800,1200,1800 [facility] Guaifenesin (Robitussin) 10 ml PO Q4H PRN PRN PRN Reason: COUGH Hydralazine HCl (Apresoline Iv) 10 mg IV Q4H PRN PRN PRN Reason: SBP > 160 Sodium Chloride () 1,000 mls @ 125 mls/hr IV .Q8H [facility] Last Admin: 08/16/18 04:13 Dose: 125 mls/hr Lamotrigine (Lamictal Xr) 300 mg PO 1800 [facility] Loratadine (Claritin) 10 mg PO DAILY [facility] Last Admin: 08/16/18 08:55 Dose: 10 mg Magnesium Hydroxide (Milk Of Magnesia) 30 ml PO DAILY PRN PRN Reason: Constipation Ondansetron HCl (Zofran) 4 mg IV Q8H PRN PRN PRN Reason: NAUSEA Pantoprazole Sodium (Protonix) 40 mg PO DAILY [facility] Last Admin: 08/16/18 08:55 Dose: 40 mg Promethazine HCl (Phenergan) 12.5 mg IV Q6H PRN PRN PRN Reason: NAUSEA/VOMITING Sodium Chloride () 5 - 30 ml IV UD PRN PRN Reason: SALINE FLUSH Last Admin: 08/16/18 09:50 Dose: 10 ml Ziprasidone (Geodon) 80 mg PO 1000,1800 [facility] Medical Necessity - Tobacco Use Smoking Status: Never smoker Tobacco Use: Non-smoker Assessment/Plan All Active Problems Acute viral syndrome (Acute) Elevated BP without diagnosis of hypertension (Acute) 1. URTI due to rhinovirus infection was admitted with positive SIRS criteria, with cough, fever and general debililty feels better today. SIRS criteria is 1/4 (tachypnea) CXR shoed cardiomegalya nd pulmonary congestion CTPA shwoed no evidence of acute PE with suboptimal contrast infusion; therefore could not exclude a subsegmental pulmonary emboli. continue supportive treatment with breathing treatments and IVF. respiratory panel positive for rhinovirus titrate oxygen to maintain sats>92% 2. ??/PE: CTPE done showed no evidence of acute PE and showed cardiomegaly,a s documented above EKG showed RBBB CXR showed pulmonary congestion BNP was only 6 currently on therapeutic lovenox; low threshold for PE based on history; will stop therapeutic lovenox as patient has low clinical suspicion for PE DUplex of LEs was negative for PE. clinical suspicion is low for PE; will dc therapeutic lovenox. If there's still suspicion for PE, to repeat CTPE tomorrow (machine is broken today) 3. Seizure disorder: on lamictal 4. Elevated BP: BP was in 160s systolic at time of admission. Now down to 128/82. has no diagnosis of hypertension. Will continue monitoring. If it remains persistently high, will initiate BP meds. 5. Anxiety and depression: on geodon. 6. Asperger's syndrome: stable 7. BERRY: On CPAP qhs 8. GERD: on PPI DVT prophylaxis: will stop therapeutic lovenox and start prophylactic dose. Code Visit OBSV E&M: 11559 Subsequent observation care L3
--- NOTE | 2018-08-16 12:37 | PN_ITS ---
Patient Problems: Active and Suspected Problems Acute viral syndrome (Acute) Elevated BP without diagnosis of hypertension (Acute) Subjective: Patient seen and examined. He has no complaints this morning. He denies fever, chills, cough, chest pain, abdominal pain, diarrhea or vomiting. Review of systems is otherwise negative. labs and vitals reviewed. Vitals/I&O's: Vital Signs Temp Pulse Resp BP Pulse Ox 98.6 F 82 20 H 128/82 H 92 08/16/18 09:21 08/16/18 11:11 08/16/18 11:11 08/16/18 09:21 08/16/18 09:21 Oxygen Flow Rate (L/min) 4 Oxygen Delivery Method Room Air Weight: 315 lb 7.704 oz Body Mass Index (BMI) 43.9 Intake and Output for Last 24 Hours 08/14/18 08/15/18 08/16/18 23:59 23:59 23:59 Intake Total 510 / 510 Balance 510 / 510 General: Alert, Oriented x3, Cooperative, No apparent distress HEENT: Atraumatic, PERRLA, EOMI, Normocephalic Oral: Moist Mucosa Neck: Supple, No JVD, Negative Carotid Bruits Lungs: Clear to auscultation, Normal air movement, No rhonchi, No wheeze, No rales Cardiovascular: Regular rate, Regular Rhythm, Normal S1, Normal S2, No murmurs Abdomen: Bowel Sounds Present, Soft, Non Tender, Non-Distended, No Hepato- splenomegaly Extremities: No clubbing, No cyanosis, No edema, Capillary Refill Less than 3 Seconds Skin: No rashes, No breakdown Musculoskeletal: No Tenderness to Palpation of Joints or Extremities Lymphatic: No Cervical, Supraclavicular, or Inguinal Adenopathy Neurological: Cranial nerves II-XII grossly intact, Neuro grossly intact, Motor Exam 5/5 strength throughout Psych/Mental Status: Normal Affect, Appropriate, Alert and oriented to time, place, person, mood and affect Microbiology Past 72 Hours 08/16/18 02:45 Mucosa - Nasopharyngeal Respiratory Panel (PCR) - Final Rhinovirus 08/16/18 01:05 Mucosa - Nasopharyngeal Influenza Types A,B Direct FA (PHUONG) - Final Laboratory Results 08/15/18 22:28: Magnesium 2.0 08/15/18 22:29: WBC 13.0 H, RBC 5.33, Hgb 15.0, Hct 44.5, MCV 83.5, MCH 28.1, MCHC 33.7, RDW 12.8, RDW Differential 38.5, Plt Count 159, MPV 9.4, Immature Gran % (Auto) 0.200, Neut % (Auto) 72.6 H, Lymph % (Auto) 12.7 L, [place] % (Auto) 10.6 H, Eos % (Auto) 3.7, Baso % (Auto) 0.2, Absolute Neuts (auto) 9.4 H, Absolute Lymphs (auto) 1.65, Total Counted Not Reportable 08/15/18 22:29: PT 12.6, INR 0.9, APTT 29.6 08/15/18 22:29: Sodium 138, Potassium 3.5, Chloride 105, Carbon Dioxide 25.0, Anion Gap 8, BUN 8, Creatinine 0.96, Estim Creat Clear Calc 132.94, Est GFR (MDRD) Af Amer 122, Est GFR (MDRD) Non-Af 101, BUN/Creatinine Ratio 8.3 L, Glucose 98, Calcium 8.6, Total Bilirubin 0.50, AST 27, ALT 55, Alkaline Phosphatase 64, Troponin I < 0.015, Total Protein 8.0, Albumin 3.9, Globulin 4.1, Albumin/Globulin Ratio 1.0 08/15/18 22:29: Lactic Acid 1.3 Diagnostic Data Chest X-Ray 08/15/18 22:35 IMPRESSION: Mild cardiomegaly and pulmonary congestion. Electronically Signed: Fernanda Espinoza MD at 0:33 EST , Service support , Chest CTA 08/16/18 01:00 IMPRESSION: 1. Technically limited enhancement of the pulmonary arteries. 2. No CTA demonstrated large or central pulmonary embolism or arterial dissection. 3. Subsegmental pulmonary emboli are not excluded. 4. Cardiomegaly. Electronically Signed: Fernanda Espinoza MD at 2:09 EST , Service support , Current Medications Acetaminophen (Tylenol) 650 mg PO Q6H PRN PRN PRN Reason: Non-cardiac pain (mod-severe) Hydrocodone Bitart/Acetaminophen ([place] 5mg-325mg) 1 - 2 tablet PO Q6H PRN PRN PRN Reason: Moderate-severe pain Last Admin: 08/16/18 10:23 Dose: 1 tablet Al Hydroxide/Mg Hydroxide (Mylanta Ii) 30 ml PO Q6H PRN PRN PRN Reason: Gastric burning Albuterol Sulfate (Ventolin Aerosols) 2.5 mg INHALATION Q2H PRN PRN PRN Reason: dyspnea, wheezing Albuterol/Ipratropium (Duoneb) 3 ml INHALATION Q4HWA.RT [facility] Last Admin: 08/16/18 11:11 Dose: 3 ml Enoxaparin Sodium (Lovenox) 150 mg SC Q12@0600,1800 [facility] Last Admin: 08/16/18 04:13 Dose: 150 mg Gabapentin (Neurontin) 100 mg PO 0800,1200,1800 [facility] Guaifenesin (Robitussin) 10 ml PO Q4H PRN PRN PRN Reason: COUGH Hydralazine HCl (Apresoline Iv) 10 mg IV Q4H PRN PRN PRN Reason: SBP > 160 Sodium Chloride () 1,000 mls @ 125 mls/hr IV .Q8H [facility] Last Admin: 08/16/18 04:13 Dose: 125 mls/hr Lamotrigine (Lamictal Xr) 300 mg PO 1800 [facility] Loratadine (Claritin) 10 mg PO DAILY [facility] Last Admin: 08/16/18 08:55 Dose: 10 mg Magnesium Hydroxide (Milk Of Magnesia) 30 ml PO DAILY PRN PRN Reason: Constipation Ondansetron HCl (Zofran) 4 mg IV Q8H PRN PRN PRN Reason: NAUSEA Pantoprazole Sodium (Protonix) 40 mg PO DAILY [facility] Last Admin: 08/16/18 08:55 Dose: 40 mg Promethazine HCl (Phenergan) 12.5 mg IV Q6H PRN PRN PRN Reason: NAUSEA/VOMITING Sodium Chloride () 5 - 30 ml IV UD PRN PRN Reason: SALINE FLUSH Last Admin: 08/16/18 09:50 Dose: 10 ml Ziprasidone (Geodon) 80 mg PO 1000,1800 [facility] Medical Necessity - Tobacco Use Smoking Status: Never smoker Tobacco Use: Non-smoker Assessment/Plan All Active Problems Acute viral syndrome (Acute) Elevated BP without diagnosis of hypertension (Acute) 1. URTI due to rhinovirus infection * was admitted with positive SIRS criteria, with cough, fever and general debililty * feels better today. SIRS criteria is 1/4 (tachypnea) * CXR shoed cardiomegalya nd pulmonary congestion * CTPA shwoed no evidence of acute PE with suboptimal contrast infusion; therefore could not exclude a subsegmental pulmonary emboli. * continue supportive treatment with breathing treatments and IVF. * respiratory panel positive for rhinovirus * titrate oxygen to maintain sats>92% * 2. ??/PE: * CTPE done showed no evidence of acute PE and showed cardiomegaly,a s documented above * EKG showed RBBB * CXR showed pulmonary congestion * BNP was only 6 * currently on therapeutic lovenox; * low threshold for PE based on history; will stop therapeutic lovenox as patient has low clinical suspicion for PE * DUplex of LEs was negative for PE. * clinical suspicion is low for PE; will dc therapeutic lovenox. If there's still suspicion for PE, to repeat CTPE tomorrow (machine is broken today) 3. Seizure disorder: on lamictal 4. Elevated BP: * BP was in 160s systolic at time of admission. * Now down to 128/82. has no diagnosis of hypertension. * Will continue monitoring. * If it remains persistently high, will initiate BP meds. * 5. Anxiety and depression: on geodon. 6. Asperger's syndrome: stable 7. BERRY: On CPAP qhs 8. GERD: on PPI DVT prophylaxis: will stop therapeutic lovenox and start prophylactic dose. Code Visit OBSV E&M: 39867 Subsequent observation care L3
[2018-08-16 13:32] LABS: BNP,B-Type NATRIURETIC PEPTIDE 6.3 pg/mL (0-100)
[2018-08-16] MEDS: LAMOTRIGINE 300 MG PO (17:01)
[2018-08-17] VITALS (10 sets, daily range): BP systolic 127–148; BP diastolic 56–81; PULSE 63–86; RESP 14–20; TEMP 36.5–37; O2SAT 93–98
[2018-08-17] MEDS: 0.9% Normal Saline 1,000 ML 125 ML IV ×2 (00:31→08:58)
[2018-08-17] MEDS: 0.9% NaCl Peripheral Flush Adult/Peds IV (00:31)
[2018-08-17] MEDS: Enoxaparin 40 MG/0.4 ML Syringe SC (05:42)
[2018-08-17] MEDS: Ipratropium/Albuterol Sulfate 3 ML AMPUL.NEB INHALATION ×2 (06:49→10:57)
[2018-08-17 07:02] LABS: Absolute Lymphocyte Count 2.01 X10^3/ul (0.83-4.51); Absolute Neutrophil Count 4.2 X10^3/uL (2.0-7.7); Basophil# 0.04 X10^3/uL; Basophil% 0.5 % (0-1); Eosinophil# 0.46 X10^3/uL; Hematocrit 42.9 % (40-54); Hemoglobin 14.4 g/dl (13.0-16.5); Lymphocyte # 2.01 X10^3/ul (4.0); Mean Corp Hgb Conc 33.6 g/gl (32-36); Mean Corpuscular Hgb 28.4 pg (27.0-32.0); Mean Corpuscular Volume 84.6 fL (80-94); Mean Platelet Vol. 9.3 fl (6.2-12.0); Monocyte# 0.98 X10^3/uL; Monocyte% 12.7 % (0-10); Neutrophil # 4.21 X10^3/uL (2.7-7.7); Neutrophil % 54.5 % (47-70); Platelet Count 168 K/mm3 (150-450); RBC Distribution Width CV 13.2 % (11.6-14.6); RBC Distribution Width SD 40.8 fl (35.1-43.9); Red Blood Count 5.07 M/mm3 (4.6-6.2); White Blood Count 7.7 K/mm3 (4.4-11.0)
[2018-08-17 07:09] LABS: Anion Gap 6 (5-15); BUN 9 mg/dL (7-18); BUN/Creat Ratio 9.2 RATIO (10-20); Calcium,Total 8.6 mg/dL (8.5-10.1); Chloride 107 mmol/L (98-107); Creatinine, Serum 0.98 mg/dL (0.70-1.30); EST Glomerular Filtration Rate 99 mL/min (>60); Est Glom Filt Rate - Afr Amer 119 mL/min (>60); Estimated Creatinine Clearance 122.73 ml/min; Glucose 86 mg/dL (74-106); Potassium 3.8 mmol/L (3.5-5.1); Sodium Level 141 mmol/L (136-145)
[2018-08-17 07:13] LABS: POSITIVE COUNT NO; POSITIVE DIFFERENTIAL NO; POSITIVE MORPHOLOGY NO
[2018-08-17] MEDS: Gabapentin 100 MG Capsule PO ×3 (08:58→18:27)
[2018-08-17] MEDS: Loratadine 10 MG Tablet PO (08:59)
[2018-08-17] MEDS: Ziprasidone HCl 20 MG Capsule 80 MG PO (09:06)
[2018-08-17] MEDS: Pantoprazole Sodium 40 MG Tablet PO (09:07)
--- NOTE | 2018-08-17 16:04 | DS.PCM_ITS ---
Discharge Date and Diagnosis - Problem List Patient Problems: Active and Suspected Problems Acute viral syndrome (Acute) Elevated BP without diagnosis of hypertension (Acute) Date of Admission: 08/16/18 Date of Discharge: 08/17/18 - Primary Discharge Diagnosis Active and Suspected Problems Acute viral syndrome (Acute) Elevated BP without diagnosis of hypertension (Acute) - Secondary Discharge Diagnosis Chronic Problems Morbid obesity (Chronic) BERRY (obstructive sleep apnea) (Chronic) Seizure disorder (Chronic) Asperger's disorder (Chronic) Anxiety and depression (Chronic) Hospital Course and Treatment Imaging Results: CXR: IMPRESSION: Mild cardiomegaly and pulmonary congestion. CTA Chest:IMPRESSION: 1. Technically limited enhancement of the pulmonary arteries. 2. No CTA demonstrated large or central pulmonary embolism or arterial dissection. 3. Subsegmental pulmonary emboli are not excluded. 4. Cardiomegaly. LE Doppler: Interpretation Summary No evidence for acute deep venous thrombosis bilateral lower extremities with patent and compressible bilateral great saphenous veins. Consults: None Operations: None Procedures: None Summary of Care Provided: Per HPI: The patient is a 27 y/o M w/ PMHx: Asperger's, Anxiety and Depression/Bipolar disorder, BERRY, Seizure disorder, GERD, Morbid Obesity who presents to the [facility] ED on 08/16/18 with history of progressively worsening dyspnea, upper respiratory symptoms with productive cough, congestion, rhinorrhea, myalgia, arthralgias as well as fever which initially started this past in addition to onset nausea without emesis and poor appetite/intake on day prior to ED presentation. In the ED work-up included T 96.9, heart rate 116, BP 161/103, respiratory rate 19, 98% on room air--> 92% on room air--> heart rate 97, BP 140/106, respiratory rate 22, 95% on 4 L nasal cannula, CBC with WBC 13, hemoglobin 15, platelet 159 with left shift, unremarkable coags, unremarkable CMP, lactic acid 1.3, troponin <0.015, CXR with cardiomegaly and pulmonary congestion, CTPA with limited enhancement of the pulmonary arteries with no evidence of acute PE with suboptimal contract infusion, cardiomegaly, EKG w/ RBBB. In the ED patient administered normal saline, Lovenox. Vital Signs - 24 hr Temp Pulse Resp BP Pulse Ox 08/17/18 13:34 98.5 F 83 18 141/76 H 98 08/17/18 10:57 83 16 08/17/18 09:09 98.4 F 75 18 141/81 H 95 08/17/18 09:00 86 08/17/18 06:49 79 16 94 08/17/18 05:29 97.7 F L 76 20 H 127/67 H 93 08/17/18 04:03 73 16 94 08/17/18 03:00 63 08/17/18 01:11 70 14 95 08/16/18 23:17 98.3 F 75 18 146/85 H 92 08/16/18 22:59 79 08/16/18 22:14 77 19 H 94 08/16/18 19:01 79 08/16/18 18:15 78 18 08/16/18 16:51 98.0 F 84 18 144/79 H 93 General: Alert, Oriented x3, Cooperative, No apparent distress HEENT: Atraumatic, PERRLA, EOMI, Normocephalic Oral: Moist Mucosa Neck: Supple, No JVD Lungs: Clear to auscultation, Normal air movement, No rhonchi, No wheeze, No rales Cardiovascular: Regular rate, Regular Rhythm, Normal S1, Normal S2, No murmurs Abdomen: Soft, Non Tender, Non-Distended, No Hepato-splenomegaly Extremities: No edema, Capillary Refill Less than 3 Seconds Skin: No rashes, No breakdown Musculoskeletal: No Tenderness to Palpation of Joints or Extremities Neurological: Cranial nerves II-XII grossly intact, Motor Exam 5/5 strength throughout, Sensory exam intact to light touch and pain Psych/Mental Status: Normal Affect, Appropriate Hospital Course: 1. URI due to Rhinovirus - He presented with SIRS and a URI. He is feeling much better today and would like to go home today. He denies chest pain or SOB currently and does not have the same pounding in his chest the way he did on admission. He does not have a PE per the CTA or the history. He has remained afebrile and his tachypnea has resolved. Will plan for DC today and with outpatient follow-up. 2. Elevated BP - He was in the 160's on admission and his now in the 140s. Per his mother he has been unable to use his CPAP at home because some of the parts are broken. He will have this repaired soon and will restart his home CPAP. If he continues to have an elevated BP on DC after his URI has resolved, then will likely need to begin medical therapy for his HTN. 3. His other diagnoses were evaluated and his home medications were continued where appropriate Patient Problems: Active and Suspected Problems Acute viral syndrome (Acute) Elevated BP without diagnosis of hypertension (Acute) - Physical Exam Vital Signs Temp Pulse Resp BP Pulse Ox 98.5 F 83 18 141/76 H 98 08/17/18 13:34 08/17/18 13:34 08/17/18 13:34 08/17/18 13:34 08/17/18 13:34 Oxygen Flow Rate (L/min) 4 Oxygen Delivery Method Room Air Weight: 315 lb 7.704 oz Body Mass Index (BMI) 43.9 Intake and Output for Last 24 Hours 08/15/18 08/16/18 08/17/18 23:59 23:59 23:59 Intake Total 2250 / 2250 3648 / 3648 Balance 2250 / 2250 3648 / 3648 Microbiology Past 72 Hours 08/16/18 02:45 Respiratory Panel (PCR) - Final Mucosa - Nasopharyngeal Rhinovirus 08/16/18 01:05 Influenza Types A,B Direct FA (PHUONG) - Final Mucosa - Nasopharyngeal Laboratory Tests Past 24 Hrs 08/17/18 08/17/18 06:45 06:45 WBC 7.7 RBC 5.07 Hgb 14.4 Hct 42.9 MCV 84.6 MCH 28.4 MCHC 33.6 RDW 13.2 RDW Differential 40.8 Plt Count 168 MPV 9.3 Immature Gran % (Auto) 0.300 Neut % (Auto) 54.5 Lymph % (Auto) 26.0 Piute % (Auto) 12.7 H Eos % (Auto) 6.0 H Baso % (Auto) 0.5 Absolute Neuts (auto) 4.2 Absolute Lymphs (auto) 2.01 Total Counted Not Reportable Sodium 141 Potassium 3.8 Chloride 107 Carbon Dioxide 28.0 Anion Gap 6 BUN 9 Creatinine 0.98 Estim Creat Clear Calc 122.73 Est GFR (MDRD) Af Amer 119 Est GFR (MDRD) Non-Af 99 BUN/Creatinine Ratio 9.2 L Glucose 86 Calcium 8.6 Call your doctor if you observe: Fever of 101 or Higher, Dizziness, Chest pain, Increased palpitations (irregular heartbeat) Home Medications: Medications to take at Discharge Pantoprazole Sodium [Protonix] 40 mg PO DAILY 07/24/15 Ziprasidone HCl [Geodon] 80 mg PO BID 07/24/15 Fexofenadine HCl 180 mg PO DAILY 08/15/18 Gabapentin [Neurontin] 1 tab PO TID 08/16/18 Lamotrigine [Lamotrigine ER] 300 mg PO DAILY 08/16/18 Primary Care Physician: Pavan Maharaj MD [Primary Care Provider] - Please follow up with your Primary Care Physician in: In 3-5 days Disposition: Home Minutes spent on discharge:: 35 Patient Condition:: Good Medical Necessity - Tobacco Use Smoking Status: Never smoker Tobacco Use: Non-smoker Meaningful Use Info Meaningful Use Diagnoses (Choose all that apply): None applicable Code Visit OBSV E&M: 45599 Observation care discharge
--- NOTE | 2018-08-17 16:06 | DCINST_ITS ---
- Discharge Diagnoses Current Active Problems: Current Active and Chronic Problems Acute viral syndrome (Acute) Elevated BP without diagnosis of hypertension (Acute) Morbid obesity (Chronic) BERYR (obstructive sleep apnea) (Chronic) Seizure disorder (Chronic) Asperger's disorder (Chronic) Anxiety and depression (Chronic) You will use the following diet at home:: Regular Your food should be the consistency of: Regular Your liquids should be the consistency of: Regular/Thin Discharge Activity: No Restrictions Call your doctor if you observe: Fever of 101 or Higher, Shortness of breath, Dizziness, Chest pain, Increased palpitations (irregular heartbeat) Allergies/Adverse Reactions: Allergies aripiprazole [From Abilify] Adverse Reaction (Verified 08/15/18 21:53) Other cephalexin monohydrate [From Keflex] Adverse Reaction (Verified 08/15/18 21:53) Other Medications to take at Discharge Pantoprazole Sodium [Protonix] 40 mg PO DAILY 07/24/15 Ziprasidone HCl [Geodon] 80 mg PO BID 07/24/15 Fexofenadine HCl 180 mg PO DAILY 08/15/18 Gabapentin [Neurontin] 1 tab PO TID 08/16/18 Lamotrigine [Lamotrigine ER] 300 mg PO DAILY 08/16/18 Primary Care Physician: Pavan Maharaj MD [Primary Care Provider] - Please follow up with your Primary Care Physician in: In 3-5 days Test Results: Test results from this visit will be discussed in further detail at your follow- up appointment, if applicable.
[2018-08-17] MEDS: LAMOTRIGINE 300 MG PO (18:27)
== END 2018-08-17 18:30 | disposition home or self-care (01) ==
LOC: ED 22:18 → PCU 08-16 03:11
PROVIDERS: Student in an Organized Health Care Education/Training Program; Admitting Provider Family Medicine; Emergency Provider Emergency Medicine; Family Provider Family Medicine; PCP Family Medicine; Visit Provider Family Medicine
DX: J06.9 Acute upper respiratory infection, unspecified (principal); I10 Essential (primary) hypertension; G47.33 Obstructive sleep apnea (adult) (pediatric); E66.01 Morbid (severe) obesity due to excess calories; G40.909 Epilepsy, unspecified, not intractable, without status epilepticus; F84.5 Asperger's syndrome; F41.9 Anxiety disorder, unspecified; F31.9 Bipolar disorder, unspecified; K21.9 Gastro-esophageal reflux disease without esophagitis; B97.89 Other viral agents as the cause of diseases classified elsewhere; G62.9 Polyneuropathy, unspecified; R09.02 Hypoxemia; Z68.41 Body mass index [BMI] 40.0-44.9, adult; Z71.3 Dietary counseling and surveillance; Z79.899 Other long term (current) drug therapy
CPT/HCPCS: 36415; 71046; 71275; 80048; 80053; 83605; 83735; 83880; 84484; 85025; 85610; 85730; 87040; 87633; 87804; 93005; 93970; 94640; 94660; 96360; 96361; 96372; 97802; 99218; 99285; J7030; Q9967; A4216; G0378

== ENCOUNTER → 2018-12-29 | Outpatient (CLI) | payer MEDICAID, SELFPAY ==
[2018-08-16 03:38] VITALS: BMI 43.9
== END | disposition home or self-care (01) ==
LOC: LABSPEC 12:30
PROVIDERS: Family Provider Family Medicine; PCP Family Medicine; Referring Provider Nurse Practitioner Adult Health; Visit Provider Nurse Practitioner Adult Health
DX: R30.0 Dysuria (principal)
CPT/HCPCS: 87086; 87088

== ENCOUNTER → 2019-12-06 | Outpatient (CLI) | payer MEDICAID, SELFPAY ==
[2018-08-16 03:38] VITALS: BMI 43.9
== END | disposition home or self-care (01) ==
PROVIDERS: PCP Family Medicine; Referring Provider Family Medicine; Visit Provider Family Medicine
DX: N39.0 Urinary tract infection, site not specified (principal)
CPT/HCPCS: 87077; 87086; 87088; 87186

== ENCOUNTER 2021-11-21 10:17 | Outpatient (CLI) | payer MEDICAID, SELFPAY ==
[2021-11-21 12:08] LABS: Absolute Lymphocyte Count 2.24 X10^3/uL (0.83-4.51); Absolute Neutrophil Count 3.8 X10^3/uL (2.0-7.7); Basophil# 0.05 X10^3/uL; Basophil% 0.7 % (0-1); Eosinophil# 0.34 X10^3/uL; Eosinophils% 4.8 % (0-5); Hematocrit 45.5 % (40-54); Hemoglobin 14.8 g/dL (13.0-16.5); Lymphocyte # 2.24 X10^3/ul (0.83-4.51); Lymphocyte % 31.9 % (19-41); Mean Corp Hgb Conc 32.5 g/dL (32-36); Mean Corpuscular Hgb 27.3 pg (27.0-32.0); Mean Corpuscular Volume 83.9 fL (80-94); Mean Platelet Vol. 9.7 fl (6.2-12.0); Monocyte# 0.63 X10^3/uL; NRBC Flagged by Analyzer 0 % (0-5); Neutrophil # 3.75 X10^3/uL (2.7-7.7); Neutrophil % 53.3 % (47-70); Platelet Count 220 K/mm3 (150-450); RBC Distribution Width CV 12.7 % (11.6-14.6); RBC Distribution Width SD 38.6 fl (35.1-43.9); Red Blood Count 5.42 M/mm3 (4.6-6.2)
[2021-11-21 12:52] LABS: ALB/GLOB Ratio 1.1 RATIO (0.9-2.4); AST(SGOT) 65 U/L (15-37); Alanine Aminotransfer ALT/SGPT 119 U/L (16-61); Albumin, Serum 4.1 g/dL (3.2-5.0); Alkaline Phosphatase 55 U/L (45-117); Anion Gap 6 (5-15); BUN 15 mg/dL (7-18); BUN/Creat Ratio 13.6 RATIO (10-20); Calcium,Total 8.6 mg/dL (8.5-10.1); Chloride 105 mmol/L (98-107); Cholesterol 232 mg/dL (200); EST Glomerular Filtration Rate 84 mL/min (>60); Est Glom Filt Rate - Afr Amer 102 mL/min (>60); Globulin 3.7 g/dL (2.2-4.2); Glucose 82 mg/dL (74-106); High Density Lipoprotein 34 mg/dL; Potassium 3.9 mmol/L (3.5-5.1); Protein, Total 7.8 g/dL (6.4-8.2); Sodium Level 139 mmol/L (136-145); Triglycerides 243 mg/dL; Very Low Density Lipoprotein 49 mg/dL (5-40)
== END 2021-11-21 23:59 | disposition home or self-care (01) ==
LOC: MFPLAB 10:21
PROVIDERS: PCP Family Medicine; Referring Provider Family Medicine; Visit Provider Family Medicine
DX: K30 Functional dyspepsia (principal); Z13.220 Encounter for screening for lipoid disorders
CPT/HCPCS: 36415; 80053; 80061; 85025

== ENCOUNTER 2021-12-10 14:58 | Outpatient (RCR) | payer MEDICAID, SELFPAY | END 2021-12-20 23:59 | LOC: NS 14:58 | PROVIDERS: PCP Family Medicine; Referring Provider Family Medicine; Visit Provider Family Medicine | DX: Z71.3 Dietary counseling and surveillance (principal); E66.9 Obesity, unspecified; Z68.42 Body mass index [BMI] 45.0-49.9, adult | CPT/HCPCS: 97802 ==

== ENCOUNTER 2022-01-08 16:00 | Outpatient (RCR) | payer MEDICAID, SELFPAY | END 2022-01-19 23:59 | LOC: NS 16:00 | PROVIDERS: PCP Family Medicine; Referring Provider Family Medicine; Visit Provider Family Medicine | DX: Z71.3 Dietary counseling and surveillance (principal); E66.9 Obesity, unspecified; Z68.42 Body mass index [BMI] 45.0-49.9, adult | CPT/HCPCS: 97803 ==

== ENCOUNTER 2022-01-24 23:11 | Emergency (ER) | payer MEDICAID, SELFPAY ==
[2022-01-24 23:12] VITALS: BP 153/104; PULSE 114; RESP 16; TEMP 36.6; O2SAT 97; BMI 50.3
--- NOTE | 2022-01-24 23:23 | CT_ITS ---
STUDY: CT ABDOMEN AND PELVIS WITHOUT CONTRAST REASON FOR EXAM: Male, 31 years old. Pain RADIATION DOSAGE (If Supplied By Facility): CTDIvol = ( 23.74 ) mGy, DLP = ( 1405.95 ) mGycm TECHNIQUE: Transaxial images were obtained from the dome of the diaphragm to the symphysis pubis without oral contrast, and without intravenous contrast. Sagittal and coronal images were reconstructed. Individualized dose optimization techniques were used for this CT. COMPARISON: None. FINDINGS: Lung bases clear. Marked diffuse hepatic steatosis. Unremarkable spleen, pancreas, adrenals, and gallbladder on this unenhanced study. No radiopaque urolithiasis or hydroureteronephrosis on either side. No definite cholelithiasis. Normal appendix. Bowel loops nonobstructed. No free air or free fluid. No adenopathy. Small fat-containing umbilical hernia. No abdominal aortic aneurysm. Sections through the pelvis demonstrate a normal sized prostate. No radiopaque stone in the bladder. Small fat-containing inguinal hernias bilaterally. No acute osseous abnormality. CT/Abdomen/Pelvis without Cont IMPRESSION: Marked diffuse hepatic steatosis. No acute finding in the abdomen and pelvis on this unenhanced study. No radiopaque urolithiasis or hydroureteronephrosis on either side. Normal appendix Electronically Signed: Bryan Kruse MD at 0:41 EDT ,
--- NOTE | 2022-01-24 23:24 | ED.VIS.GI ---
HPI HPI - GI History of Present Illness Chief Complaint: Complaint Narrative Narrative: Patient with past medical history of asked Buerger's, seizure disorder, anxiety and depression states that he is having abdominal pain, nausea, vomiting, and diarrhea. He states his symptoms began this morning. He had an episode of diarrhea at work. He was nauseated and vomited once without any blood in his emesis. While he denies any dysuria or hematuria, he states he went to an urgent care and was diagnosed with a urinary tract infection and took his first dose of antibiotic this evening. He presents because he is having pain in his left flank to abdomen and he is having the nausea, vomiting, and diarrhea. He denies any past surgical history to his abdomen. Last seizure was in 2014 that his epilepsy is well controlled. He denies any exacerbating or alleviating factors. [facility] Medical History (Updated 01/25/22 @ 00:49 by Otto Shane MD) Asperger syndrome Autism Seizure Sleep apnea Home Medications Ziprasidone Hcl [Geodon] 80 mg PO BID 07/24/15 [History Last Taken 08/15/18] pantoprazole 40 mg PO DAILY 07/24/15 [History Last Taken 08/15/18] fexofenadine 180 mg PO DAILY 08/15/18 [History Last Taken 08/15/18] gabapentin 1 tab PO TID 08/16/18 [History Last Taken Unknown] lamotrigine 300 mg PO DAILY 08/16/18 [History Last Taken 08/15/18] ondansetron 4 mg PO Q8H PRN #10 tab 01/25/22 [Rx Last Taken Unknown] Allergy/AdvReac Type Severity Reaction Status Date / Time aripiprazole [From Abilify] AdvReac Other Verified 01/24/22 23:14 cephalexin monohydrate AdvReac Other Verified 01/24/22 23:14 [From Keflex] levetiracetam [From Keppra] AdvReac Other Verified 01/24/22 23:18 Social History Smoking Status: Never smoker ROS ROS ED ROS Narrative Constitutional: No fever, no chills. HEENT: No sore throat. No neck pain. No loss of vision. No rhinorrhea. Cardiovascular: No chest pain. No palpitations. No pedal edema. Respiratory: No cough, no shortness of breath. Abdominal: Positive abdominal pain more in left flank to left lower quadrant. Positive nausea. 1 episode of bilious vomiting. Positive loose stool/diarrhea, nonbloody. Genitourinary: No dysuria. No hematuria. Musculoskeletal: No myalgias. No arthralgias. Neurologic: No headaches. No dizziness. No lightheadedness. Skin: No rash. No change in color. Psychiatric: No depression. No anxiety. EXAM Physical Exam Narrative Exam Narrative: Afebrile. Vital signs noted. HEENT: Normocephalic. Atraumatic. PERRL, EOMI. Neck soft and supple. No point tenderness or step off. Cardiovascular: Regular rate and rhythm. No murmurs, rubs, or gallops appreciated. Respiratory: No tachypnea. Lungs clear to auscultation bilaterally. Gastrointestinal: Abdomen soft, mild tenderness to palpation in left flank to left lower quadrant with normoactive bowel sounds. No rebound or guarding. Neurological: Awake. Alert. Nonfocal, nonlateralizing. Consistent with Asperger's. Skin: No rash. Normal color. No pallor. Musculoskeletal: No pedal edema. Full range of motion extremities. Const Vital Signs: 01/24/22 23:12 01/25/22 01:08 Temperature 98 F Temperature Source Temporal Pulse Rate 114 H 91 Respiratory Rate 16 16 Blood Pressure 153/104 H 144/87 H Blood Pressure Mean 120 Pulse Ox 97 97 Oxygen Delivery Method Room Air MDM MDM MDM Narrative Medical decision making narrative: Patient will be bolused normal saline 1 L intravenously. I will obtain basic laboratory work and a CT of the abdomen and pelvis, along with a urinalysis. His CBC shows normal white count 9.0, hemoglobin normal at 15.2 with a normal hematocrit of 45.4. Platelet count normal at 158. Electrolyte panel is grossly unremarkable except AST elevated at 45 and ALT slightly elevated at 97. Lipase normal at 121. Urinalysis shows 0-5 WBCs and negative for nitrites. However, he states he is already on antibiotics from the urgent care. CT of the abdomen and pelvis shows no acute process except for moderate hepatic steatosis. Appendix appears normal. Upon repeat examination, he is resting comfortably, watching TV. His abdomen is soft. There has been no vomiting in the emergency department. I will write him a prescription for a few Zofran tablets to take as needed. At this point in time, I feel he can be discharged safely home with follow-up to his primary care physician. Return instructions to the emergency department were reviewed. Disposition is discharged home in stable condition. Lab Data Attestation: I reviewed the patient's lab results. Labs: Laboratory Results - last 24 hr 01/24/22 01/24/22 01/24/22 23:35 23:35 23:44 WBC 9.0 RBC 5.49 Hgb 15.2 Hct 45.4 MCV 82.7 MCH 27.7 MCHC 33.5 RDW Std Deviation 38.2 RDW Coeff of Dylan 12.6 Plt Count 158 MPV 9.1 Immature Gran % (Auto) 0.300 Neut % (Auto) 80.7 H Lymph % (Auto) 10.1 L [place] % (Auto) 7.8 Eos % (Auto) 0.9 Baso % (Auto) 0.2 Absolute Neuts (auto) 7.3 Absolute Lymphs (auto) 0.91 Nucleated RBC % 0 Sodium 137 Potassium 3.7 Chloride 105 Carbon Dioxide 26.0 Anion Gap 6 BUN 16 Creatinine 1.00 Estim Creat Clear Calc 112.54 Est GFR (MDRD) Af Amer 114 Est GFR (MDRD) Non-Af 94 BUN/Creatinine Ratio 16.1 Glucose 103 Calcium 8.4 L Total Bilirubin 1.00 AST 45 H ALT 97 H Alkaline Phosphatase 54 Total Protein 7.5 Albumin 3.9 Globulin 3.6 Albumin/Globulin Ratio 1.1 Lipase 121 Urine Color Yellow Urine Clarity Clear Urine pH 6.5 Ur Specific [place] 1.010 Urine Protein Negative Urine Glucose (UA) Normal Urine Ketones Negative Urine Occult Blood Negative Urine Nitrite Negative Urine Bilirubin Negative Urine Urobilinogen Normal Ur Leukocyte Esterase 100 H Urine RBC 0 SEEN Urine WBC 0-5 SEEN Ur Squamous Epith Cells 0-5 SEEN Urine Bacteria 3+ Urine Mucus 0 SEEN Radiography Diagnostic Testing: Clinical Impression(s) from Imaging Studies Abdomen/Pelvis CT 01/24/22 23:23 IMPRESSION: Marked diffuse hepatic steatosis. No acute finding in the abdomen and pelvis on this unenhanced study. No radiopaque urolithiasis or hydroureteronephrosis on either side. Normal appendix Electronically Signed: Bryan Kruse MD at 0:41 EDT , Discharge Plan Triage Chief Complaint: Complaint ED Provider: Otto Shane Dx/Rx/DC Orders Clinical Impression: Abdominal pain, Nausea vomiting and diarrhea Instructions: ED Abdominal Pain Unkn Cause Male..., ED Vomiting and Diarrhea ... Prescriptions: New ondansetron 4 mg tablet,disintegrating 4 mg PO Q8H PRN (Reason: nausea and vomiting) Qty: 10 RF: 0 No Action pantoprazole 40 MG tablet 40 mg PO DAILY RF: 0 Ziprasidone Hcl [Geodon] 80 MG capsule 80 mg PO BID RF: 0 fexofenadine 180 MG tablet 180 mg PO DAILY RF: 0 gabapentin 100 MG capsule 1 tab PO TID RF: 0 lamotrigine 200 MG tablet extended release 24hr 300 mg PO DAILY RF: 0 Primary Care Provider: Pavan Maharaj Referrals: Pavan Maharaj MD [Primary Care Provider] - 3-5 Days if not improving Disposition Disposition: Home, Self Care Discharge Date/Time: 01/25/22 01:09
[2022-01-24] MEDS: 0.9% Normal Saline 1,000 ML 1000 ML IV (23:37)
[2022-01-24 23:45] LABS: Absolute Lymphocyte Count 0.91 X10^3/uL (0.83-4.51); Absolute Neutrophil Count 7.3 X10^3/uL (2.0-7.7); Basophil# 0.02 X10^3/uL; Basophil% 0.2 % (0-1); Eosinophil# 0.08 X10^3/uL; Eosinophils% 0.9 % (0-5); Hematocrit 45.4 % (40-54); Hemoglobin 15.2 g/dL (13.0-16.5); Lymphocyte # 0.91 X10^3/ul (0.83-4.51); Lymphocyte % 10.1 % (19-41); Mean Corp Hgb Conc 33.5 g/dL (32-36); Mean Corpuscular Hgb 27.7 pg (27.0-32.0); Mean Corpuscular Volume 82.7 fL (80-94); Mean Platelet Vol. 9.1 fl (6.2-12.0); Monocyte% 7.8 % (0-10); NRBC Flagged by Analyzer 0 % (0-5); Neutrophil # 7.29 X10^3/uL (2.7-7.7); Neutrophil % 80.7 % (47-70); Platelet Count 158 K/mm3 (150-450); RBC Distribution Width CV 12.6 % (11.6-14.6); RBC Distribution Width SD 38.2 fl (35.1-43.9); Red Blood Count 5.49 M/mm3 (4.6-6.2)
--- NOTE | 2022-01-24 23:57 | ED.RN ---
mother called at patients request. unable to travel to ed to be with patient. mother was going to call father and see about have some come to sit with patient. marianne sainz rn [id number]
[2022-01-24 23:58] LABS: Mucous, Urine 0 SEEN /hpf (<or=2+); Red Blood Cells-Urine 0 SEEN /hpf (0-5)
[2022-01-24 23:59] LABS: Color, Urine Yellow (Yellow); Glucose, Dipstick Normal (Normal); Ketone-Dipstick Negative (Negative); Leukocyte Esterase-Dipstick 100 /ul (Negative); Nitrite-Dipstick Negative (Negative); Occult Blood-Urine Negative /ul (Negative); Protein-Dipstick Negative (Negative); Urine Bilirubin Dipstick Negative (Negative); Urine Clarity Clear (Clear); Urine Urobilinogen Normal (Normal); Urine pH 6.5 (5.0 - 8.0)
[2022-01-25 00:07] LABS: ALB/GLOB Ratio 1.1 RATIO (0.9-2.4); AST(SGOT) 45 U/L (15-37); Alanine Aminotransfer ALT/SGPT 97 U/L (16-61); Albumin, Serum 3.9 g/dL (3.2-5.0); Alkaline Phosphatase 54 U/L (45-117); Anion Gap 6 (5-15); BUN 16 mg/dL (7-18); BUN/Creat Ratio 16.1 RATIO (10-20); Calcium,Total 8.4 mg/dL (8.5-10.1); Chloride 105 mmol/L (98-107); EST Glomerular Filtration Rate 94 mL/min (>60); Est Glom Filt Rate - Afr Amer 114 mL/min (>60); Estimated Creatinine Clearance 112.54 ml/min; Globulin 3.6 g/dL (2.2-4.2); Glucose 103 mg/dL (74-106); Lipase 121 U/L (73-393); Potassium 3.7 mmol/L (3.5-5.1); Protein, Total 7.5 g/dL (6.4-8.2); Sodium Level 137 mmol/L (136-145)
[2022-01-25 00:42] LABS: Bacteria 3+ /hpf (None Seen); Squamous Epithelial Cells - UA 0-5 SEEN /hpf (0-5); White Blood Cells 0-5 SEEN /hpf (0-5)
[2022-01-25 01:08] VITALS: BP 144/87; PULSE 91; RESP 16; O2SAT 97
== END 2022-01-25 01:09 | disposition home or self-care (01) ==
PROVIDERS: Emergency Provider Emergency Medicine; PCP Family Medicine; Visit Provider Emergency Medicine
DX: R10.9 Unspecified abdominal pain (principal); G40.909 Epilepsy, unspecified, not intractable, without status epilepticus; R11.2 Nausea with vomiting, unspecified; R19.7 Diarrhea, unspecified; Z79.899 Other long term (current) drug therapy; F84.5 Asperger's syndrome; G47.30 Sleep apnea, unspecified; F41.9 Anxiety disorder, unspecified; F32.A Depression, unspecified
CPT/HCPCS: 74176; 80053; 81001; 83690; 85025; 96360; 99283; J7030; A4216

== ENCOUNTER 2022-03-18 15:27 | Outpatient (RCR) | payer MEDICAID, SELFPAY | END 2022-03-21 23:59 | LOC: NS 15:27 | PROVIDERS: PCP Family Medicine; Referring Provider Family Medicine; Visit Provider Family Medicine | DX: Z71.3 Dietary counseling and surveillance (principal); E66.9 Obesity, unspecified; Z68.42 Body mass index [BMI] 45.0-49.9, adult | CPT/HCPCS: 97803 ==

== ENCOUNTER 2022-04-15 15:30 | Outpatient (RCR) | payer MEDICAID, SELFPAY | END 2022-04-21 23:59 | LOC: NS 15:30 | PROVIDERS: PCP Family Medicine; Referring Provider Family Medicine; Visit Provider Family Medicine | DX: Z71.3 Dietary counseling and surveillance (principal); E66.9 Obesity, unspecified; Z68.42 Body mass index [BMI] 45.0-49.9, adult | CPT/HCPCS: 97803 ==

== ENCOUNTER 2022-05-21 16:30 | Outpatient (RCR) | payer MEDICAID, SELFPAY | END 2022-05-22 23:59 | LOC: NS 16:30 | PROVIDERS: PCP Family Medicine; Referring Provider Family Medicine; Visit Provider Family Medicine | DX: Z71.3 Dietary counseling and surveillance (principal); E66.9 Obesity, unspecified; Z68.42 Body mass index [BMI] 45.0-49.9, adult | CPT/HCPCS: 97803 ==

== ENCOUNTER → 2022-06-19 | Outpatient (CLI) | payer MEDICAID, SELFPAY ==
[2022-06-19 17:53] LABS: ALB/GLOB Ratio 1.1 RATIO (0.9-2.4); AST(SGOT) 77 U/L (15-37); Alanine Aminotransfer ALT/SGPT 150 U/L (16-61); Alkaline Phosphatase 55 U/L (45-117); Anion Gap 9 (5-15); BUN 16 mg/dL (7-18); BUN/Creat Ratio 16.4 RATIO (10-20); Chloride 107 mmol/L (98-107); Creatinine, Serum 0.98 mg/dL (0.70-1.30); EST Glomerular Filtration Rate 96 mL/min (>60); Est Glom Filt Rate - Afr Amer 116 mL/min (>60); Globulin 3.7 g/dL (2.2-4.2); Glucose 94 mg/dL (74-106); Potassium 4.2 mmol/L (3.5-5.1); Protein, Total 7.7 g/dL (6.4-8.2); Sodium Level 141 mmol/L (136-145)
[2022-06-19 17:57] LABS: Hemoglobin A1c 5.6 % (3.8-5.6)
== END | disposition home or self-care (01) ==
LOC: MFPLAB 15:21
PROVIDERS: PCP Family Medicine; Referring Provider Family Medicine; Visit Provider Family Medicine
DX: K76.0 Fatty (change of) liver, not elsewhere classified (principal)
CPT/HCPCS: 36415; 80053; 83036

== ENCOUNTER 2022-06-20 15:22 | Outpatient (RCR) | payer MEDICAID, SELFPAY | END 2022-06-21 23:59 | LOC: NS 15:22 | PROVIDERS: PCP Family Medicine; Referring Provider Family Medicine; Visit Provider Family Medicine | DX: Z71.3 Dietary counseling and surveillance (principal); E66.9 Obesity, unspecified; Z68.42 Body mass index [BMI] 45.0-49.9, adult | CPT/HCPCS: 97803 ==

== ENCOUNTER → 2022-06-25 | Outpatient (CLI) | payer MEDICAID, SELFPAY ==
[2022-06-25 19:16] LABS: ALB/GLOB Ratio 1.1 RATIO (0.9-2.4); AST(SGOT) 47 U/L (15-37); Alanine Aminotransfer ALT/SGPT 112 U/L (16-61); Alkaline Phosphatase 52 U/L (45-117); Anion Gap 9 (5-15); BUN 13 mg/dL (7-18); BUN/Creat Ratio 11.5 RATIO (10-20); Calcium,Total 9.1 mg/dL (8.5-10.1); Chloride 105 mmol/L (98-107); Creatinine, Serum 1.13 mg/dL (0.70-1.30); EST Glomerular Filtration Rate 81 mL/min (>60); Est Glom Filt Rate - Afr Amer 98 mL/min (>60); Globulin 3.7 g/dL (2.2-4.2); Glucose 99 mg/dL (74-106); Potassium 3.9 mmol/L (3.5-5.1); Protein, Total 7.7 g/dL (6.4-8.2); Sodium Level 140 mmol/L (136-145)
[2022-06-25 20:38] LABS: Hemoglobin A1c 5.5 % (3.8-5.6)
== END | disposition home or self-care (01) ==
LOC: MTLAB 16:05
PROVIDERS: PCP Family Medicine; Referring Provider Family Medicine; Visit Provider Family Medicine
DX: K76.0 Fatty (change of) liver, not elsewhere classified (principal)
CPT/HCPCS: 36415; 80053; 83036

== ENCOUNTER → 2022-07-01 | Outpatient (CLI) | payer MEDICAID, SELFPAY ==
--- NOTE | 2022-07-01 09:47 | US_ITS ---
STUDY: ABDOMINAL ULTRASOUND - ELASTOGRAPHY REASON FOR VISIT: Male, 31 years old. Elevated liver function tests. TECHNIQUE: Liver stiffness measurements were obtained on a Shoulder Tap RS 85 ultrasound machine using a CA 1-7 probe following the SRU guidelines. 3 measurements were obtained using a 2-D-SWE method. The IQR/M was 25% suggesting a quality data set. TECHNICAL QUALITY: Adequate. COMPARISON: Comparison is made with prior examination done earlier today. FINDINGS: Liver: Hepatomegaly and fatty infiltration of the liver. Median liver stiffness measured 6.3 kPa. US/Elastography Parenchyma/Organ IMPRESSION: Liver stiffness measures 6.3 kPa compatible with F2-F3 (Mild to moderate liver fibrosis) Metavir score. Electronically Signed: Saurabh Sherman MD at 10:53 EDT ,
--- NOTE | 2022-07-01 09:53 | US_ITS ---
STUDY: ABDOMINAL ULTRASOUND - RIGHT UPPER QUADRANT REASON FOR VISIT: Male, 31 years old ELEVATED LFT''S TECHNIQUE: Ultrasound evaluation of the right upper quadrant was performed with real-time and static rodney-scale imaging. TECHNICAL QUALITY: Adequate. COMPARISON: None. FINDINGS: Liver: The liver is enlarged and measures 19.6 cm. There is increased echogenicity consistent with fatty infiltration. The bile ducts are within normal limits. There is hepatic color flow. The direction of portal flow is hepatopetal. There is no demonstrated mass lesion. Gallbladder: Normal distended gallbladder. The gallbladder wall measures 1.5 mm. There is a negative sonographic Montesinos''s sign. There is no pericholecystic fluid. There are no gallstones. Common Bile Duct (C.B.D.): The common bile duct measures 3.8 mm. Pancreas: There is nonvisualization of the pancreas due to overlying bowel gas. Right Kidney: Normal size of the right kidney. The right kidney measures 12.8 cm x 7.2 cm x 5.2 cm. Normal renal cortex. The right cortex measures 1.2 cm. There is no demonstrated renal mass or cyst. There is no right hydronephrosis. US/Abdomen Limited IMPRESSION: Hepatomegaly and fatty infiltration of the liver. Electronically Signed: Saurabh Sherman MD at 10:52 EDT ,
== END | disposition home or self-care (01) ==
LOC: US 09:46
PROVIDERS: PCP Family Medicine; Referring Provider Family Medicine; Visit Provider Family Medicine
DX: R79.89 Other specified abnormal findings of blood chemistry (principal)
CPT/HCPCS: 76705; 76981

== ENCOUNTER 2022-07-03 15:51 | Outpatient (RCR) | payer MEDICAID, SELFPAY | END 2022-07-22 23:59 | LOC: NS 15:51 | PROVIDERS: PCP Family Medicine; Referring Provider Family Medicine; Visit Provider Family Medicine | DX: Z71.3 Dietary counseling and surveillance (principal); E66.9 Obesity, unspecified; Z68.42 Body mass index [BMI] 45.0-49.9, adult | CPT/HCPCS: 97803 ==

== ENCOUNTER 2022-08-07 09:43 | Outpatient (CLI) | payer MEDICAID, SELFPAY ==
--- NOTE | 2022-08-07 09:46 | NM_ITS ---
CLINICAL: 31-year-old male with history of abdominal pain. RADIONUCLIDE HEPATOBILIARY SCINTIGRAPHY COMPARISON: Abdominal ultrasound report 07/01/2022 FINDINGS: Following the intravenous administration of 5.5 mCi of 99m Tc Mebrofenin, hepatobiliary images reveal: 1. Relatively prompt and homogeneous radiopharmaceutical concentration is noted by a normal sized liver. No parenchymal defects are identified. 2. Gallbladder activity is identified at 15 minutes post radiopharmaceutical administration. 3. Small intestinal tract is observed at 15 minutes following tracer injection. 4. Washout of the radiopharmaceutical by the hepatic parenchyma occurs in a normal fashion on qualitative inspection. 5. There is scintigraphic evidence of transient duodenal-gastric reflux at 30 minutes post radiotracer provision. Cholecystokinin (0.02 ug/kg) was administered intravenously over a 30-minute period. The post CCK gallbladder ejection fraction calculated at 20 minutes following Cholecystokinin administration was noted to be < 5 % (normal greater than 35%). Subtle post cholecystokinin duodenal-gastric reflux is noted. AR/Hepatobilliary Img w/Pharm Int IMPRESSION: 1. ABNORMAL 99m Tc Mebrofenin hepatobiliary imaging examination with Cholecystokinin. A. A gallbladder ejection fraction calculated to be less than 35% following the administration of Cholecystokinin is consistent with the presence of functional hepatobiliary disease (gallbladder and/or sphincter of Oddi dyskinesia) and/or organic hepatobiliary disease (chronic acalculous cholecystitis and/or cystic duct syndrome) in patients with intermediate to high pretest probabilities of hepatobiliary illness. (Jose Huston et al, Journal of Nuclear Medicine 32:1695, 1990). B. There is scintigraphic evidence of transient pre-CCK duodenal-gastric reflux and redefined post cholecystokinin duodenal gastric reflux as described above. Electronically Signed: Doroteo Lyles, at 14:06 EST ,
== END 2022-08-07 23:59 | disposition home or self-care (01) ==
LOC: NM 09:44
PROVIDERS: PCP Family Medicine; Referring Provider Family Medicine; Visit Provider Family Medicine
DX: R10.33 Periumbilical pain (principal)
CPT/HCPCS: 78227; A9537; J2805

== ENCOUNTER 2022-08-27 09:14 | Day surgery (SDC) | payer MEDICAID, SELFPAY ==
[2022-08-27] VITALS (7 sets, daily range): BP systolic 112–142; BP diastolic 76–87; PULSE 64–69; RESP 16–18; TEMP 36.3–36.7; O2SAT 92–97; BMI 43.9
--- NOTE | 2022-08-27 09:29 | EKG12_ITS ---
Test Reason : PRE-OP Blood Pressure : / mmHG Vent. Rate : 061 BPM Atrial Rate : 061 BPM P-R Int : 208 ms QRS Dur : 108 ms QT Int : 412 ms P-R-T Axes : 019 097 005 degrees QTc Int : 414 ms Normal sinus rhythm with sinus arrhythmia Normal ECG When compared with ECG of 15-AUG-2018 22:35, Vent. rate has decreased BY 45 BPM Confirmed by IAN LYLE, GARLAND ([id number]), editor dictionary MACK CAI ([id number]) on 09/03/2022 11:14:29 AM Referred By: Domo Zaman Confirmed By:MICHELE SOSA MD
[2022-08-27] MEDS: Lactated Ringers 1,000 ML 15 ML IV (09:45)
--- NOTE | 2022-08-27 10:00 | RAD_ITS ---
STUDY: INTRAOPERATIVE CHOLANGIOGRAM. REASON FOR EXAM: Male, 31 years old. Laparoscopic cholecystectomy. FLUOROSCOPY TIME (if supplied): ( 10.6 seconds ) minutes/seconds. One image was submitted. TECHNIQUE: Attempted intraoperative cholangiogram. COMPARISON: None. FINDINGS: Nondiagnostic study. RAD/Cholangiogram/ O R,Initial IMPRESSION: Nondiagnostic examination. Electronically Signed: Saurabh Sherman MD at 12:31 EST ,
[2022-08-27 10:01] LABS: Hematocrit 43.1 % (40-54); Hemoglobin 14.2 g/dL (13.0-16.5); Mean Corp Hgb Conc 32.9 g/dL (32-36); Mean Corpuscular Hgb 27.5 pg (27.0-32.0); Mean Corpuscular Volume 83.5 fL (80-94); Mean Platelet Vol. 9.1 fl (6.2-12.0); Platelet Count 212 K/mm3 (150-450); RBC Distribution Width CV 12.5 % (11.6-14.6); Red Blood Count 5.16 M/mm3 (4.6-6.2); White Blood Count 6.3 K/mm3 (4.4-11.0)
[2022-08-27 10:12] LABS: Partial Thromboplast Time 26.6 Seconds (24.1-36.2)
[2022-08-27 10:39] LABS: Anion Gap 3 (5-15); BUN 13 mg/dL (7-18); BUN/Creat Ratio 13.2 RATIO (10-20); Chloride 109 mmol/L (98-107); Creatinine, Serum 0.98 mg/dL (0.70-1.30); EST Glomerular Filtration Rate 95 mL/min (>60); Est Glom Filt Rate - Afr Amer 115 mL/min (>60); Estimated Creatinine Clearance 122.07 ml/min; Glucose 93 mg/dL (74-106); Potassium 3.7 mmol/L (3.5-5.1); Sodium Level 140 mmol/L (136-145)
--- NOTE | 2022-08-27 10:47 | PCM.HP.BLA ---
History and Physical Date of Admission: 08/27/22 Intake Vital Signs ? 07/03/2217:48 08/20/2209:24 Height 5 ft 11 in 5 ft 9 in Weight: 340 lb 3.2 oz 334 lb 4 oz BMI ? 49.4 BP ? 113/80 Blood Pressure Location ? Lt brachial Position ? Sitting Respiration ? 18 Pulse ? 84 Pulse Source ? Monitor Temp ? 97.3 F L Temp Source ? Temporal Pulse Oximetry (%) ? 95 Oxygen Delivery Method ? room air Intake Visit Reasons:?ABNORMAL HIDA Chief Complaint: biliary dyskinesia Ex Assistant/Program Director Required: No Accompanied by: Other Is patient in pain?: No Allergies aripiprazole [From Abilify] Adverse Reaction (Verified 08/20/22 09:26) Othercephalexin monohydrate [From Keflex] Adverse Reaction (Verified 08/20/22 09:26) Otherlevetiracetam [From Keppra] Adverse Reaction (Verified 08/20/22 09:26) Other Medications Ziprasidone Hcl [Geodon] 80 mg PO BID 07/24/15 [History Confirmed 08/20/22] pantoprazole 40 mg tablet,delayed release 40 mg PO DAILY 07/24/15 [History Confirmed 08/20/22] lamotrigine 200 mg tablet,extended release 24 hr 300 mg PO DAILY 08/16/18 [History Confirmed 08/20/22] ondansetron 4 mg disintegrating tablet 4 mg PO Q8H PRN nausea and vomiting #10 tabs 01/25/22 [Rx Confirmed 08/20/22] albuterol sulfate 90 mcg/actuation aerosol inhaler (Ventolin HFA) 2 puff inhalation Q4H PRN 08/20/22 [History Confirmed 08/20/22] gabapentin 100 mg capsule 100 mg PO DAILY 08/20/22 [History Confirmed 08/20/22] loratadine 10 mg capsule 10 mg PO DAILY 08/20/22 [History Confirmed 08/20/22] omega-3 fatty acids 1,000 mg capsule 1,000 mg PO DAILY 08/20/22 [History Confirmed 08/20/22] PFSH Medical History?(Updated 08/21/22 @ 08:[address] Domo Zaman MD) Abdominal pain Acute viral syndrome Anxiety and depression Asperger syndrome Autism Biliary dyskinesia Elevated BP without diagnosis of hypertension Morbid obesity Seizure Seizure disorder Sleep apnea Surgical History?(Updated 08/20/22 @ 09:22 by Elsa Kay) No history of previous surgery Family History?(Updated 08/20/22 @ 09:24 by Elsa Kay) Father Arthritis Heart diseaseGrandmother Diabetes Kidney diseaseMother Heart diseaseUncle Hypertension Diabetes Social History? Smoking Status:? Never smoker HPI HPI HPI: Patient is a 31-year-old male with epigastric and right upper quadrant pain.? He reports that the pain happens with eating.? He does not have any nausea or vomiting. ROS General General: Yes weight change and fatigue; No appetite, colon cancer, breast cancer or weakness HEENT HEENT: No difficulty swallowing, eye injury, eye surgery, swollen glands or hoarseness Endo Endocrine: No thyroid disease, diabetes mellitus, thyroid cancer, Hair loss, heat intolerance or cold intolerance Skin Skin: No rash or changing moles Breast Breast: No left breast lump, right breast lump, nipple discharge, breast pain, abnormal mammogram, abnormal US or breast enlargement Musc Musculoskeletal: No back problems, arthritis, rheumatoid arthritis, gout or joint pain Cardio Cardiovascular: No murmur, pacemaker, heart disease, atrial fibrillation, high blood pressure, heart attack, heart stent, palpitations, shortness of breat with exertion or chest pain Psych Psychiatric: Yes depression and anxiety; No hearing voices Resp Respiratory: No shortness of breath, Yes sleep apnea, No cough, No COPD, No asthma, No emphysema and No wheezing Gastro Gastrointestinal: Yes abdominal pain, Yes nausea or vomiting, Yes diarrhea, No constipation, No blood in stool, Yes acid reflux, No hemorrhoids, No ulcers, Yes gallbladder problem and No black,tarry stools [place] Hematologic: No blood thinners, No blood disorders, No bleeding, No anemia and No blood clots Neuro Neurologic: No system reviewed and no additional complaints, except as documented, No as per HPI, No abnormal gait, No abnormal hearing, No abnormal movements, No abnormal speech, No behavioral changes, No burning sensations, No confusion, No convulsions, No disequilibrium, No dizziness, No localized weakness, No frequent falls, No headache(s), No lack of coordination, No loss of vision, No memory loss, No numbness, No other visual disturbances, No radicular pain, No restless legs, No sensory deficit, No syncope, No tingling, No tremor(s), No weakness and No other Exam Const General: cooperative Orientation: alert and oriented x3 HENMT Head: normal to inspection Neck Neck: normal visual inspection and full ROM Chest Chest palpation & inspection: normal inspection of the chest Resp Effort & Inspection: normal respiratory effort Auscultation: clear to auscultation bilaterally Cardio Rate: regular rate Rhythm: regular rhythm GI Inspection: non-distended Palpation: soft and nontender Skin General: no rashes or lesions noted Neuro General: patient alert and patient oriented x3 Extrem General: full ROM Psych Appearance: grossly normal Mental Status: mental status grossly normal Assessment and Plan Assessment and Plan (1) Biliary dyskinesia: ?Status:?Acute ?Plan: The patient has been having epigastric pain especially after eating.? He had a HIDA scan which showed ejection fraction less than 5%.? The patient does say that his pain happens with meals and this is suggestive of biliary dyskinesia.? I discussed laparoscopic cholecystectomy with cholangiogram with the patient.? I discussed it with his parents and caregiver as well. I discussed the procedure in detail with the patient.? I discussed the risks, benefits, and alternatives of the procedure.? I discussed the risks including but not limited to bleeding, infection, injury to surrounding organs such as the liver, bile duct, bowels.? I did discuss the possibility of having to convert to an open procedure as well as the possibility that if any injuries occurred this may necessitate further surgery at a tertiary care center. Domo Zaman MD Pager: [facility] [address] [place] [address], [address] [place] [address] Office: I have examined the patient and the H&P has been reviewed. There are no clinical changes since date of exam.
--- NOTE | 2022-08-27 11:00 | GALL_PTH ---
PATIENT: JAMES MILLER [place] [facility] [id number] AGE/SX: 31/M ROOM: RE08/27/[address]: Dr. Domo Zaman MD : 1990 BED: DIS: 08/27/2022 SPEC #: [id number] RECD: 08/27/22 16:12 STATUS: DONG GARDINER #: [id number] SHAHRAM: 08/27/22 11:[address]: Domo Zaman DEPT: SURGICAL PATHOLOGY RECD BY: Noel Taylor ENTERED: 08/28/22 07:38 SP TYPE: MELYSSA CARO DR: Dr. Yuri Maharaj MD Tissues: Gallbladder, NOS Procedures: Surgery Specimen Level III HEADER OPERATION: Laparoscopic cholecystectomy with IOC PRE-OP DIAGNOSIS: Biliary dyskinesia TISSUE SUBMITTED: Gallbladder MICROSCOPIC DIAGNOSIS Gallbladder, cholecystectomy: Chronic cholecystitis and cholelithiasis. SJ:juan 08/29/2022 MICROSCOPIC DESCRIPTION Slides are reviewed. GROSS DESCRIPTION Received is one container labeled with the patient's name and designated gallbladder. The specimen consists of a gallbladder measuring 8.5 cm in length and 3.5 cm in diameter. The external surface is pink-lawrence, smooth and glistening for the most part. Focally it is granular, hemorrhagic and contains cautery artifact. The gallbladder contains green-yellow mucoid bile and one black, irregular stone measuring in 0.4 cm in greatest dimension. Also present in the container is one black stone measuring 0.2 cm in greatest dimension. The mucosa is bile-stained and without any mass lesions. The gallbladder wall measures up to 0.5 cm in thickness. Increased amount of subserosal fat is noted. Database Manager sections from the gallbladder and the cystic duct are submitted in one cassette. / SJ:juan 08/28/2022 TC:3 CPT: 33566
[2022-08-27] MEDS: Clindamycin 900 MG/50 ML BAG 75 MG IV (11:45)
[2022-08-27] MEDS: Bupivacaine 0.25% 30 ML Vial (12:55)
--- NOTE | 2022-08-27 13:32 | PCM.OPRPT ---
Report of Operation Date of Procedure: 08/27/22 Pre-Operative Diagnosis: Biliary dyskinesia Post-Operative Diagnosis: Biliary dyskinesia Surgery/Procedure Performed:: Laparoscopic cholecystectomy with cholangiogram Specimen's removed: Gallbladder Description of Procedure: After obtaining informed consent patient was brought back to the operating room. General anesthesia was induced. The abdomen was prepped and draped in usual sterile fashion. A small midline incision was made superior to the umbilicus and deepened to the level of fascia. The fascia was elevated and incised. Next the peritoneum was elevated and incised in the same fashion. Finger sweep was performed and the Greenwood trocar was placed into the abdomen. The balloon was inflated. The abdomen was inflated to 15 mmHg. Next a camera was introduced into the abdomen and the abdomen was inspected. Next under direct visualization three 5-mm ports were placed one subxiphoid and 2 subcostal. Next the gallbladder was elevated and retracted toward the right shoulder. The peritoneum was stripped from the gallbladder. The infundibulum was located and retracted laterally. Next the triangle of Calot was dissected and the cystic duct and cystic artery were identified. Cholangiograms were performed. The Valencia clamp was used to clamp across the infundibulum and the catheter needle was inserted into the gallbladder. Under fluoroscopy contrast was instilled into the gallbladder and the common duct, cystic duct as well as proximal hepatic ducts were identified. There was good filling of the duodenum. There were no filling defects noted in the common bile duct. The clamp was removed as well as the needle and the infundibulum was grasped once more. Three hemolock clips were placed across the cystic duct. The cystic duct was then divided leaving 2 clips on the stump. The cystic artery was clipped and divided in the same fashion. The hook cautery was then used to take the gallbladder off of the gallbladder bed. Hemostasis was obtained. Gallbladder fossa was irrigated and no active bleeding or bile leakage was noted. Next the camera was introduced in the subxiphoid port. An Endopouch bag was placed through the umbilical port and the gallbladder was placed into it. The gallbladder was then removed through the umbilical incision. The camera was then reinserted through the umbilical port. The gallbladder fossa was inspected once more and noted to be hemostatic with no leaking bile. The abdomen was suctioned dry. The 5 mm ports were removed under direct visualization. The umbilical port was then removed and the air was removed from the abdomen. Next using an 0 Vicryl suture the umbilical fascia was closed in a [id number] fashion. The umbilical port site was irrigated local anesthetic was administered to all the incisions. All the incisions were closed with interrupted subcuticular 4-0 Monocryl sutures followed by Steri-Strips and dressings. The patient was awoken and taken to PACU in stable condition. Admit VTE Documentation VTE Mechan Device Prophylaxis: SCD's
--- NOTE | 2022-08-27 13:33 | DCINST_ITS ---
Discharge Instructions Procedure Gallbladder Diet Discharge Diet: Light diet - advance as tolerated Activity Discharge Activity: May Not Drive (for 2-3 days or while taking narcotic pain medications.) and - (Do not drive, work heavy equipment or sign legal documents for 24 hours.) May shower in (days): 1 Lifting Restrictions: 20 lbs for 2 weeks Additional Activity Instructions:: Pain medication may cause nausea. You should typically eat light foods as you take your pain medications. Pain medication may also cause constipation. If this is a problem for you, please discuss with your doctor. Dressing / Incision Call your doctor if your incision/area has: Continuous Slow Oozing, Sudden Increased Bleeding, Increased Pain/ Swelling, Increased Redness and Foul Smelling Discharge Call your doctor if you observe: Fever of 101 or Higher Suture Line Care: Avoid Pulling/Pushing and Avoid Pinching/Bending Remove Dressing in: 2 days Additional Dressing/Incision Instructions:: Leave operative bandaids on for 2 days. When you remove dressing, leave Steri-Strips on until your follow-up appointment, or until the Steri-Strips fall off on their own. Follow Up Care Please Follow Up With: Domo Zaman MD When: Please call to schedule 2 week follow up appointment. [phone] Test Results: Test results from this visit will be discussed in further detail at your follow- up appointment, if applicable. Discharge Plan Admission Attending Provider: Domo Zaman Primary Care Provider: Pavan Maharaj Instructions Additional Instructions / Restrictions: Ibuprofen and Tylenol alternating for pain. Oxycodone for breakthrough pain. Discharge Orders/Prescriptions Prescriptions: New oxycodone 5 mg tablet 5 - 10 mg PO Q6H PRN (Reason: pain) 5 Days Qty: 20 0RF No Action loratadine 10 mg capsule 10 mg PO DAILY albuterol sulfate [Ventolin HFA] 90 mcg/actuation HFA aerosol inhaler 2 puff inhalation Q4H PRN (Reason: SOB) omega-3 fatty acids 1,000 mg capsule 1,000 mg PO DAILY pantoprazole 40 MG tablet 40 mg PO DAILY Ziprasidone Hcl [Geodon] 80 MG capsule 80 mg PO BID lamotrigine 200 MG tablet extended release 24hr 300 mg PO QHS gabapentin 100 mg capsule 100 mg PO DAILY Label Comments: take 1 capsule by mouth three times a day Referrals / Follow Up: Pavan Maharaj MD [Primary Care Provider] - Disposition Disposition (needs filled in before D/C Order can be placed): Home, Self Care
[2022-08-27] MEDS: oxyCODONE 5 MG Tablet PO (14:41)
--- NOTE | 2022-08-27 15:51 | SUR.PHASEII ---
spoke with prison staff about patients discharge instructions. she verbalized understanding and had all questions answered.
== END 2022-08-27 15:53 | disposition home or self-care (01) ==
LOC: SDC 09:15 → AC 09:17
PROVIDERS: Anesthesiology; PCP Family Medicine; Referring Provider Surgery; Visit Provider Surgery
PROC: (CPT 47610; principal; 2022-08-27 10:40)
DX: K80.10 Calculus of gallbladder with chronic cholecystitis without obstruction (principal); E66.01 Morbid (severe) obesity due to excess calories; Z68.41 Body mass index [BMI] 40.0-44.9, adult; G40.909 Epilepsy, unspecified, not intractable, without status epilepticus; R03.0 Elevated blood-pressure reading, without diagnosis of hypertension; F84.5 Asperger's syndrome; F84.0 Autistic disorder; Z79.899 Other long term (current) drug therapy
CPT/HCPCS: 47563; 00790; 74300; 76000; 80048; 85027; 85730; 88304; 93005; J7120; J2405

== ENCOUNTER → 2023-06-02 | Outpatient (CLI) | payer MEDICAID, SELFPAY ==
[2023-06-02 08:25] LABS: Mucous, Urine 0 SEEN /hpf (<or=2+); Red Blood Cells-Urine 0 SEEN /hpf (0-5)
[2023-06-02 11:00] LABS: Color, Urine Yellow (Yellow); Glucose, Dipstick Normal (Normal); Ketone-Dipstick 5 mg/dl (Negative); Leukocyte Esterase-Dipstick 100 /ul (Negative); Nitrite-Dipstick Negative (Negative); Occult Blood-Urine Negative /ul (Negative); Protein-Dipstick 30 mg/dl (Negative); Urine Bilirubin Dipstick 1 mg/dL (Negative); Urine Clarity Sl. Cloudy (Clear); Urine Urobilinogen 4 mg/dl (Normal)
[2023-06-02 11:02] LABS: AST(SGOT) 48 U/L (15-37); Alanine Aminotransfer ALT/SGPT 100 U/L (16-61); Albumin, Serum 3.7 g/dL (3.2-5.0); Alkaline Phosphatase 50 U/L (45-117); Anion Gap 7 (5-15); BUN 15 mg/dL (7-18); Calcium,Total 8.5 mg/dL (8.5-10.1); Chloride 107 mmol/L (98-107); Cholesterol 228 mg/dL (200); Creatinine, Serum 1.15 mg/dL (0.70-1.30); EST Glomerular Filtration Rate 79 mL/min (>60); Est Glom Filt Rate - Afr Amer 96 mL/min (>60); Ferritin 70 ng/mL (26-388); GGTP 108 U/L (15-85); Globulin 3.8 g/dL (2.2-4.2); Glucose 91 mg/dL (74-106); High Density Lipoprotein 33 mg/dL; Iron 165 ug/dL (65-175); Potassium 3.9 mmol/L (3.5-5.1); Protein, Total 7.5 g/dL (6.4-8.2); Sodium Level 141 mmol/L (136-145); Thyroid Stim Hormone (TSH) 2.07 uIU/mL (0.358-3.74); Triglycerides 407 mg/dL
[2023-06-02 11:22] LABS: Bacteria 3+ /hpf (None Seen); Squamous Epithelial Cells - UA 0-5 SEEN /hpf (0-5); White Blood Cells 10-25 SEEN /hpf (0-5)
[2023-06-02 12:39] LABS: Vitamin B12 430 pg/mL (211-911); Vitamin D,25 Hydroxy 26.3 ng/mL
== END | disposition home or self-care (01) ==
PROVIDERS: PCP Family Medicine; Referring Provider Family Medicine; Visit Provider Family Medicine
DX: Z00.00 Encounter for general adult medical examination without abnormal findings (principal); R79.89 Other specified abnormal findings of blood chemistry; R53.83 Other fatigue
CPT/HCPCS: 36415; 80053; 80061; 81001; 82306; 82607; 82728; 82977; 83540; 84403; 84443

== ENCOUNTER 2023-09-23 21:16 | Emergency (ER) | payer MEDICAID, SELFPAY ==
[2023-09-23 21:17] VITALS: BP 152/108; PULSE 110; RESP 18; TEMP 36.2; O2SAT 96; BMI 51.5
--- OUTSIDE RECORDS SUMMARY | 2023-09-23 21:42 | XMS RPT_ITS | CCD ---
Author Name Unknown Address [address] [place] [address] Organization [facility] Care Team Providers Care Picture Copyist Name Role Phone CATHY GARCIA Admitting Unavailable CATHY GARCIA Attending Unavailable CATHY GARCIA Primary Care Unavailable CATHY GARCIA Admitting Unavailable CATHY GARCIA Attending Unavailable CHANDNI PEÑA Primary Care Unavail able Chandni Peña MD Primary Care Provider Chandni Peña MD Primary Care Provider Chandni Peña MD Primary Care Provider Chandni Peña MD Primary Care Provider EJNSEN WILLIAMSON Referring Unavailable CHANDNI PEÑA Primary Care Unavailabl e CHANDNI PEÑA Primary Care Unavailabl e CHANDNI PEÑA Primary Care Unavailfinn e CHANDNI PEÑA Primary Care Unavailabl e CHANDNI PEÑA Primary Care Unavailabl e CHANDNI PEÑA Primary Care Unavailabl e Allergies Allergy Classification Reported Allergen(s) Allergy Type Date of Onset Reaction(s) Facility (7 sources) ARIPiprazole; Translations: [ARIPIPRAZOLE] Drug Allergy 11-12-2007 Intolerance [facility] Work Phone: (7 sources) Cephalexin; Translations: [CEPHALEXIN] Drug Allergy 08-15-2018 Other: See Comments [facility] (7 sources) levETIRAcetam; Translations: [LEVETIRACETAM] Drug Allergy 01-24-2022 Other: See Comments [facility] Medications Current Medications Medication Drug Class(es) Dates Sig (Normalized) Sig (Original) predniSONE 20 mg oral tablet (2 sources) Start: 02-22-2022 End: 02-27-2022 take 2 tablets by mouth once daily predniSONE (DELTASONE) 20 mg tablet Indications: History of asthma , Seasonal allergic rhinitis due to other allergic trigger Take 2 tablets by mouth once daily for 5 days. 10 tablet 0 02/22/2022 02/27/2022 Active Completed/Discontinued Medications Medication Drug Class(es) Dates Sig (Normalized) Sig (Original) [id number] 200 actuat albuterol 0.09 mg/actuat metered dose inhaler (6 sources) beta2-Adrenergic Agonist Start: 02-22-2022 take 2 puff(s) by inhalation every four hours as needed albuterol HFA (PROAIR HFA) 90 mcg/actuation inhaler Indications: URI, acute , Seasonal allergic rhinitis due to other allergic trigger Inhale 2 Puffs as instructed every 4 hours as needed. 1 Inhaler 0 02/22/2022 Active Problems Problem Classification Problem Date Documented Da te Episodic/Chronic Epilepsy; convulsions (2 sources) Generalized idiopathic epilepsy and epileptic syndromes, not intractable, without status epilepticus; Translations: [GEN IDIO EPILEPSY NOT INTRCT W/O SE] Onset: 06-06-2020 Chronic Fever of unknown origin (1 source) Fever; Translations: [Fever, unspecified] Episodic Immunizations and screening for infectious disease (1 source) Suspected disease caused by 2019-nCoV; Translations: [Suspected COVID-19 virus infection] Episodic Other lower respiratory disease (1 source) H/O: asthma; Translations: [Personal history of other diseases of the respiratory system] Episodic Other upper respiratory disease (2 sources) Seasonal allergic rhinitis; Translations: [Other allergic rhinitis] Chronic Other upper respiratory infections (5 sources) Acute upper respiratory infection; Translations: [Acute upper respiratory infection, unspecified] Episodic Results Test Name Value Interpretation Reference Range Facil ity Vital Signs Date Time Vital Sign Value Performing Clinician Eugenie ibarra 11-20-2022 14:26-0500 Body temperature 97.39 [degF] Eliane Clark PA-C Work Phone: [facility] 11-20-2022 14:26-050 Body weight 150.78 kg Eliane Clark PA-C Work Phone: [facility] 11-20-2022 14:26-0500 Diastolic blood pressure 74 mm[Hg] Eliane Athy PA-C Work Phone: [facility] 11-20-2022 14:26-0500 Heart rate 70 /min Eliane Athy PA-C Work Phone: [facility] 11-20-2022 14:26-0500 Respiratory rate 21 /min Eliane Athy PA-C Work Phone: [facility] 11-20-2022 14:26-0500 SaO2% (BldA) [Mass fraction] 97 % Eliane Athy PA-C Work Phone: [facility] 11-20-2022 14:26-0500 Systolic blood pressure 124 mm[Hg] Eliane Athy PA-C Work Phone: [facility] 07-15-2022 12:08-0400 Body temperature 100.6 [degF] Pancho Palomino MD Work Phone: [facility] 07-15-2022 12:08-0400 Body weight 155.58 kg Pancho Palomino MD Work Phone: [facility] 07-15-2022 12:08-0400 Diastolic blood pressure 80 mm[Hg] Pancho Palomino MD Work Phone: [facility] 07-15-2022 12:08-0400 Heart rate 122 /min Pancho Palomino MD Work Phone: [facility] 07-15-2022 12:08-0400 Respiratory rate 20 /min Pancho Palomino MD Work Phone: [facility] 07-15-2022 12:08-0400 SaO2% (BldA) [Mass fraction] 96 % Pancho Palomino MD Work Phone: [facility] 07-15-2022 12:08-0400 Systolic blood pressure 128 mm[Hg] Pancho Palomino MD Work Phone: [facility] 05-24-2022 12:38-0400 Body temperature 100.8 [degF] Sherry Tunde DRUM DRIER.DEVELOPMENT EDITOR Work Phone: [facility] 05-24-2022 12:38-0400 Body weight 152.41 kg Sherry Tunde DRUM DRIER.DEVELOPMENT EDITOR Work Phone: [facility] 05-24-2022 12:38-0400 Diastolic blood pressure 78 mm[Hg] Sherry Tunde DRUM DRIER.DEVELOPMENT EDITOR Work Phone: [facility] 05-24-2022 12:38-0400 Heart rate 106 /min Sherry Tunde DRUM DRIER.DEVELOPMENT EDITOR Work Phone: [facility] 05-24-2022 12:38-0400 Respiratory rate 18 /min Sherry Tunde DRUM DRIER.DEVELOPMENT EDITOR Work Phone: [facility] 05-24-2022 12:38-0400 SaO2% (BldA) [Mass fraction] 95 % Sherry Tunde DRUM DRIER.DEVELOPMENT EDITOR Work Phone: [facility] 05-24-2022 12:38-0400 Systolic blood pressure 132 mm[Hg] Sherry Tunde DRUM DRIER.DEVELOPMENT EDITOR Work Phone: [facility] 02-22-2022 10:01-0400 Body temperature 98.01 [degF] Jensen Williamson DRUM DRIER.DEVELOPMENT EDITOR Work Phone: [facility] 02-22-2022 10:01-0400 Body weight 158.31 kg Jensen Williamson DRUM DRIER.DEVELOPMENT EDITOR Work Phone: [facility] 02-22-2022 10:01-0400 Diastolic blood pressure 80 mm[Hg] Jensen Williamson DRUM DRIER.DEVELOPMENT EDITOR Work Phone: [facility] 02-22-2022 10:01-0400 Heart rate 87 /min Jensen Williamson DRUM DRIER.DEVELOPMENT EDITOR Work Phone: [facility] 02-22-2022 10:01-0400 Respiratory rate 16 /min Jensen Williamson DRUM DRIER.DEVELOPMENT EDITOR Work Phone: [facility] 02-22-2022 10:01-0400 SaO2% (BldA) [Mass fraction] 97 % Jensen Clay DRUM DRIER.DEVELOPMENT EDITOR Work Phone: [facility] 02-22-2022 10:01-0400 Systolic blood pressure 138 mm[Hg] Jensen Williamson APRN.DEVELOPMENT EDITOR Work Phone: [facility] Encounters Encounter Date Encounter Type Care Provider Facility Start: 11-20-2022 End: 11-20-2022 ambulatory CHANDNI PEÑA Facility:[facility] Start: 11-20-2022 End: 11-20-2022 Patient encounter procedure Eliane Clark PA-C Work Phone: [facility] Procedures Date Procedure Procedure Detail Performing Clinician Start: 11-20-2022 COVID WITH FLUA+B, ROUTINE Eliane Clark PA-C Work Phone: Start: 11-20-2022 STREP A MOLECULAR (POC) Eliane Clark PA-C Work Phone: Plan of Treatment Date Care Activity Detail Author Start: 09-22-2022 DEPRESSION ASSESSMENT DEPRESSION ASSESSMENT [facility] Start: 07-15-2022 End: 07-29-2022 Influenza virus A and B RNA and SARS-CoV-2 (COVID-19) N gene panel - Respiratory specimen by ANTWAN with probe detection COVID WITH FLUA+B, ROUTINE Microbiology Routine URI, acute Expected: 07/15/2022, Expires: 07/29/2022 [facility] Work Phone: Payers Date Payer Category Payer Medicaid MEDICAID [facility] MEDICAID [id number] 2021-Present [phone] [address] [place] [address] Medicaid [id number] 2021 Medicaid MEDICAID [facility] MEDICAID [id number] 2021-Present [phone] [address] [place] [address] Medicaid [id number] 1992 Unknown [id number] 1992 Unknown [id number] 1959 Medicaid [id number] Social History Date Type Detail Facility Start: 01-24-2022 End: 07-15-2022 Tobacco smoking status NHIS Never smoked tobacco [facility] Start: 01-24-2022 End: 07-15-2022 Tobacco use and exposure Smokeless tobacco non-user [facility] Start: 02-22-2022 End: 11-20-2022 Alcohol intake Lifetime non-drinker (finding) [facility] Start: 01-24-2022 History SDOH Alcohol Frequency 1 [facility] Start: 1990 Sex Assigned At Not on file [facility] Start: 02-12-2022 End: 07-15-2022 Exposure to SARS-CoV-2 (event) Not sure [facility] Work Phone: Clinical Notes 01-24-2022 to 11-20-2022 Eliane Clark PA-C - 11/20/2022 3:03 PM ESTTelephone Encounter - Kemi Merino - 07/16/2022 7:57 AM EDTTelephone Encounter - Eliane Clark PA-C - 07/16/2022 7:43 AM EDTPatient Instructions Note Date & Type Note Facility 11-20-2022 Note HNO ID: [id number] Author: Eliane Clark PA-C Service: ? Author Type: Physician Underwriting Technician Type: Progress Notes Filed: 11/20/2022 3:05 PM Note Text: This note was created using [email or web address]. Subjective Gregory Miller is a 32 year old male. HPI Patient presents with cough and chest congestion over the past day. He also has had a scratchy throat and postnasal drip. No fever. No trouble breathing. No vomiting. He did have some diarrhea over the weekend but that has resolved. [place] and they would like COVID ruled out. No OTC meds used. Review of Systems Constitutional: Negative. HENT: Positive for congestion and sore throat. Negative for ear pain, facial swelling, sinus pressure and sinus pain. Respiratory: Positive for cough. Cardiovascular: Negative. Gastrointestinal: Negative. Genitourinary: Negative. Musculoskeletal: Negative. Skin: Negative. All other systems reviewed and are negative. PAST MEDICAL HISTORY Diagnosis Date Attention deficit disorder with hyperactivity(314.01) Asperger's Febrile convulsions (simple), unspecified as Current Outpatient Medications Medication Sig Dispense Refill gabapentin (NEURONTIN) 100 mg capsule Take by mouth. lamoTRIgine ER (LAMICTAL XR) 300 mg 24 hr tablet Take 300 mg by mouth once daily. ziprasidone (GEODON) 80 mg capsule take 1 capsule by mouth twice a day with meals pantoprazole DR (PROTONIX) 40 mg tablet Take 40 mg by mouth once daily. omega-3/dha/epa/dpa/fish oil (OMEGA-3 2100 ORAL) Take by mouth. loratadine (CLARITIN ORAL) Take by mouth. Dextromethorphan-guaiFENesin (ROBITUSSIN DM) 10-200 mg/5 mL liqd Take 5 mL by mouth every 6 hours as needed. 118 mL 0 fluticasone (FLONASE) 50 mcg/actuation nasal spray Use 2 Sprays in each nostril once daily. Rinse mouth after use. (Patient not taking: Reported on 11/20/2022) 1 Each 0 albuterol HFA (PROAIR HFA) 90 mcg/actuation inhaler Inhale 2 Puffs as instructed every 4 hours as needed. (Patient not taking: Reported on 11/20/2022) 1 Inhaler 0 polyethylene glycol 3350(MIRALAX 100 % ORAL POWDER) 17 gm (1.5 tablespoon) mixed into 6-8 oz of fluids once a day (Patient not taking: Reported on 11/20/2022) 527 gm 3 amphet asp/amphet/d-amphet(ADDERALL XR 25 MG 24 HR CAP) Take one(1) tablet daily. (Patient not taking: No sig reported) 0 quetiapine fumarate(SEROQUEL 100 MG TAB) 1 tab po qd and 3 tabs po qHS (Patient not taking: Reported on 11/20/2022) 0 No current facility-administered medications for this visit. PAST SURGICAL HISTORY Procedure Laterality Date NONE FAMILY HISTORY Problem Relation Age of Onset Lipids Paternal Grandmother Lipids Paternal Grandfather Lipids Paternal Uncle Hypertension Paternal Grandfather Hypertension Father Heart Paternal Grandfather Seizures Paternal Grandmother Diabetes Paternal Grandmother Diabetes Paternal Uncle Thyroid Paternal Uncle hypothyroid GI Paternal Grandmother gallstones GI Father GERD GI Other PGGM colitis needing surgery. Psychiatry Father ?bipolar (runs in family) Social History Tobacco Use Smoking status: Never Smokeless tobacco: Never Substance Use Topics Alcohol use: Never Drug use: Never Objective BP 124/74 Pulse 70 Temp 36.3 ?C (97.4 ?F) Resp 21 Wt (!) 150.8 kg (332 lb 6.4 oz) SpO2 97% Physical Exam Vitals reviewed. Constitutional: Appearance: Normal appearance. HENT: Head: Normocephalic and atraumatic. Right Ear: Tympanic membrane, ear canal and external ear normal. Left Ear: Tympanic membrane, ear canal and external ear normal. Nose: Congestion present. Mouth/Throat: Mouth: Mucous membranes are moist. Pharynx: Posterior oropharyngeal erythema present. No oropharyngeal exudate. Comments: Post nasal drip Cardiovascular: Rate and Rhythm: Normal rate and regular rhythm. Heart sounds: Normal heart sounds. Pulmonary: Effort: Pulmonary effort is normal. Breath sounds: Normal breath sounds. Musculoskeletal: Cervical back: Neck supple. Lymphadenopathy: Cervical: No cervical adenopathy. Skin: General: Skin is warm and dry. Neurological: General: No focal deficit present. Mental Status: He is alert and oriented to person, place, and time. Assessment and Plan ASSESSMENT/PLAN: 1. Viral URI with cough - ICD9: 465.9, ICD10: J06.9 - Discussed viral etiology and rationale for treatment. - Symptomatic treatment with prn analgesia - Supportive care with fluids and rest - COVID WITH FLUA+B, ROUTINE - STREP A MOLECULAR (POC)- negative strep test here. Eliane Clark PA-C [facility] 11-20-2022 History of Presen t illness Narrative This note was created using [email or web address]. Subjective Gregory Miller is a 32 year old male. HPI Patient presents with cough and chest congestion over the past day. He also has had a scratchy throat and postnasal drip. No fever. No trouble breathing. No vomiting. He did have some diarrhea over the weekend but that has resolved. He lives in a detention and they would like COVID ruled out. No OTC meds used. Review of Systems Constitutional: Negative. HENT: Positive for congestion and sore throat. Negative for ear pain, facial swelling, sinus pressure and sinus pain. Respiratory: Positive for cough. Cardiovascular: Negative. Gastrointestinal: Negative. Genitourinary: Negative. Musculoskeletal: Negative. Skin: Negative. All other systems reviewed and are negative. PAST MEDICAL HISTORY Diagnosis Date Attention deficit disorder with hyperactivity(314.01) Asperger's Febrile convulsions (simple), unspecified as Current Outpatient Medications Medication Sig Dispense Refill gabapentin (NEURONTIN) 100 mg capsule Take by mouth. lamoTRIgine ER (LAMICTAL XR) 300 mg 24 hr tablet Take 300 mg by mouth once daily. ziprasidone (GEODON) 80 mg capsule take 1 capsule by mouth twice a day with meals pantoprazole DR (PROTONIX) 40 mg tablet Take 40 mg by mouth once daily. omega-3/dha/epa/dpa/fish oil (OMEGA-3 2100 ORAL) Take by mouth. loratadine (CLARITIN ORAL) Take by mouth. Dextromethorphan-guaiFENesin (ROBITUSSIN DM) 10-200 mg/5 mL liqd Take 5 mL by mouth every 6 hours as needed. 118 mL 0 fluticasone (FLONASE) 50 mcg/actuation nasal spray Use 2 Sprays in each nostril once daily. Rinse mouth after use. (Patient not taking: Reported on 11/20/2022) 1 Each 0 albuterol HFA (PROAIR HFA) 90 mcg/actuation inhaler Inhale 2 Puffs as instructed every 4 hours as needed. (Patient not taking: Reported on 11/20/2022) 1 Inhaler 0 polyethylene glycol 3350(MIRALAX 100 % ORAL POWDER) 17 gm (1.5 tablespoon) mixed into 6-8 oz of fluids once a day (Patient not taking: Reported on 11/20/2022) 527 gm 3 amphet asp/amphet/d-amphet(ADDERALL XR 25 MG 24 HR CAP) Take one(1) tablet daily. (Patient not taking: No sig reported) 0 quetiapine fumarate(SEROQUEL 100 MG TAB) 1 tab po qd and 3 tabs po qHS (Patient not taking: Reported on 11/20/2022) 0 No current facility-administered medications for this visit. PAST SURGICAL HISTORY Procedure Laterality Date NONE FAMILY HISTORY Problem Relation Age of Onset Lipids Paternal Grandmother Lipids Paternal Grandfather Lipids Paternal Uncle Hypertension Paternal Grandfather Hypertension Father Heart Paternal Grandfather Seizures Paternal Grandmother Diabetes Paternal Grandmother Diabetes Paternal Uncle Thyroid Paternal Uncle hypothyroid GI Paternal Grandmother gallstones GI Father GERD GI Other PGGM colitis needing surgery. Psychiatry Father ?bipolar (runs in family) Social History Tobacco Use Smoking status: Never Smokeless tobacco: Never Substance Use Topics Alcohol use: Never Drug use: Never Objective BP 124/74 Pulse 70 Temp 36.3 C (97.4 F) Resp 21 Wt (!) 150.8 kg (332 lb 6.4 oz) SpO2 97% Physical Exam Vitals reviewed. Constitutional: Appearance: Normal appearance. HENT: Head: Normocephalic and atraumatic. Right Ear: Tympanic membrane, ear canal and external ear normal. Left Ear: Tympanic membrane, ear canal and external ear normal. Nose: Congestion present. Mouth/Throat: Mouth: Mucous membranes are moist. Pharynx: Posterior oropharyngeal erythema present. No oropharyngeal exudate. Comments: Post nasal drip Cardiovascular: Rate and Rhythm: Normal rate and regular rhythm. Heart sounds: Normal heart sounds. Pulmonary: Effort: Pulmonary effort is normal. Breath sounds: Normal breath sounds. Musculoskeletal: Cervical back: Neck supple. Lymphadenopathy: Cervical: No cervical adenopathy. Skin: General: Skin is warm and dry. Neurological: General: No focal deficit present. Mental Status: He is alert and oriented to person, place, and time. Assessment and Plan ASSESSMENT/PLAN: 1. Viral URI with cough - ICD9: 465.9, ICD10: J06.9 - Discussed viral etiology and rationale for treatment. - Symptomatic treatment with prn analgesia - Supportive care with fluids and rest - COVID WITH FLUA+B, ROUTINE - STREP A MOLECULAR (POC)- negative strep test here. Eliane Clark PA-C documented in this encounter [facility] 07-16-2022 Miscellaneous Notes Patient given results and verbalized understanding of instructions given. Kemi Merino Let patient know their covid19/influenza test was negative. documented in this encounter [facility] 07-15-2022 Influenza virus A and B RNA and SARS-CoV-2 (COVID-19) N gene panel ANTWAN+probe (Resp) COVID 19 RESULT: SARS-CoV-2 (Agent of COVID-19) Not Detected by RT-PCR or equivalent method. jose [id number] (JOCELYN)_EUA This test was developed and its performance characteristics determined by [facility]'s [facility] [place]. This test has been authorized by FDA under an Emergency Use Authorization (EUA). This test has been validated in accordance with the FDA's Guidance Document Policy for Diagnostics Testing in Laboratories Certified to Perform High Complexity Testing under CLIA prior to Emergency use Authorization for Coronavirus Disease 2019 during the Public Health Emergency issued on November 20, 2019. Test performed by [facility], [facility] [place], [address] [place] [address]. INFLUENZA A PCR: Negative for Influenza A by RT-PCR INFLUENZA B PCR: Negative for Influenza B by RT-PCR [facility] Diagnosis URI with cough and congestion- Primary Fever, unspecified fever cause Suspected COVID-19 virus infection URI, acute Acute upper respiratory infections of unspecified site Seasonal allergic rhinitis due to other allergic trigger [facility] Diagnosis URI, acute- Primary Acute upper respiratory infections of unspecified site [facility] Diagnosis Viral URI with cough- Primary Acute upper respiratory infections of unspecified site documented in this encounter [facility] Summary Purpose Family History No Family History Records FoundNo Family History Records Found Advance Directives No Advanced Directives Records FoundNo Advanced Directives Records Found Health Concerns Infection Onset Date Last Indicated Resolved Time COVID-19 Rule-Out 05/24/2022 05/24/2022 Infection Onset Date Last Indicated Resolved Time COVID-19 Rule-Out 07/15/2022 07/15/2022 Infection Onset Date Last Indicated Resolved Time COVID-19 Rule-Out 07/15/2022 07/15/2022 07/16/2022 1:59 AM EDT Infection Onset Date Last Indicated Resolved Time COVID-19 Rule-Out 11/20/2022 11/20/2022 11/20/2022 11:26 PM EST Additional Source Comments (unrecognized sect ion and content) No Status Records FoundNo Status Records Found INFORMATION SOURCE (unrecogn ized section and content) DATE CREATED AUTHOR AUTHOR'S ORGANIZ ATION 11/22/2022 [facility] Source Comments (unrecognize d section and content) In the event this informatio n is protected by the Federal Confidentiality of Alcohol and Drug Abuse Patient Records regulations: The Federal rules restrict any use of the information to criminally investigate or prosecute any alcohol or drug abuse patient.[facility] the event this information is protected by the Federal Confidentiality of Alcohol and Drug Abuse Patient Records regulations: The Federal rules restrict any use of the information to criminally investigate or prosecute any alcohol or drug abuse patient.[facility] the event this information is protected by the Federal Confidentiality of Alcohol and Drug Abuse Patient Records regulations: The Federal rules restrict any use of the information to criminally investigate or prosecute any alcohol or drug abuse patient.[facility] the event this information is protected by the Federal Confidentiality of Alcohol and Drug Abuse Patient Records regulations: The Federal rules restrict any use of the information to criminally investigate or prosecute any alcohol or drug abuse patient.[facility] the event this information is protected by the Federal Confidentiality of Alcohol and Drug Abuse Patient Records regulations: The Federal rules restrict any use of the information to criminally investigate or prosecute any alcohol or drug abuse patient.[facility] the event this information is protected by the Federal Confidentiality of Alcohol and Drug Abuse Patient Records regulations: The Federal rules restrict any use of the information to criminally investigate or prosecute any alcohol or drug abuse patient.[facility] Reason for Visit (unrecogniz ed section and content) Reason Comments Results Reason Comments Cough Cough, sneezing and LARIOS - symptoms started last night Reason Comments Cough congestion, headache and sore throat x 1 day Reason Comments Sore Throat Cough, LARIOS x 2 days Care Teams (unrecognized sec tion and content) Picture Copyist Relationship Specialty Start Date End Date Chandni Peña MD [address] [facility], [place] [id number] PCP - General Family Practice 01/24/22 Picture Copyist Relationship Specialty Start Date End Date Chandni Peña MD [address] [facility] [place], [place] [id number] PCP - General Family Practice 01/24/22 Picture Copyist Relationship Specialty Start Date End Date Chandni Peña MD [address] [facility] [place], [place] [id number] PCP - General Family Medicine 01/24/22 Picture Copyist Relationship Specialty Start Date End Date Chandni Peña MD [address] [facility] [place], [place] [id number] PCP - General Family Medicine 01/24/22 FOR RECORDS PERTAINING TO PATIENTS WHO ARE OR HAVE BEEN ENROLLED IN A CHEMICAL DEPENDENCY/SUBSTANCEABUSE PROGRAM, SOME INFORMATION MAY BE OMITTED. This clinical summary was aggregated from multiple sources. Caution should be exercised in using it in the provision of clinical care. This summary normalizes information from multiple sources, and as a consequence, information in this document may materially change the coding, format and clinical context of patient data. In addition, data may be omitted in some cases. CLINICAL DECISIONS SHOULD BE BASED ON THE PRIMARY CLINICAL RECORDS. [facility]. provides no warranty or guarantee of the accuracy or completeness of information in this document.
--- NOTE | 2023-09-23 22:45 | EX.ED.VIS.UR ---
HPI HPI - URI History of Present Illness Chief Complaint: Cold Sx Narrative Narrative: 33-year-old male [facility] for mild chills, body aches. Subjective fever at home. Apparently the patient is not allowed to get medicated with Tylenol and ibuprofen unless he has a diagnosis for this. It is unclear whether he has a physician at the facility. The caregiver at the bedside states that they are not legally allowed to give him Tylenol and ibuprofen unless they have a diagnosis for it. Patient states he is eating and drinking normally. Making normal urine and stool. He has a cough, rhinorrhea. He does not feel like he short of breath. ROS ROS ED Review of Systems ROS Unobtainable: Denies due to encephalopathy Constitutional Constitutional ED: Reports chills, fever(s) and subjective Eyes Eyes: Denies change in vision ENT ENT ED: Reports rhinorrhea Cardiovascular Cardiovascular: Denies chest pain or palpitations Respiratory/Chest Respiratory/Chest: Reports cough; Denies dyspnea Gastrointestinal Gastrointestinal: Denies abdominal pain, nausea or vomiting Genitourinary Genitourinary ED: Denies dysuria or hematuria Musculoskeletal Musculoskeletal: Denies arthralgias Integumentary Denies abscess Neurologic Neurologic: Reports headache(s); Denies paresthesias or weakness Psychiatric Psychiatric: Denies anxiety or depression [facility] Medical History Abdominal pain Acute viral syndrome Anxiety and depression Asperger syndrome Autism Biliary dyskinesia CPAP (continuous positive airway pressure) dependence Elevated BP without diagnosis of hypertension Gastric reflux Lives in penitentiary Morbid obesity Non-smoker Seizure Seizure disorder Wears glasses Home Medications Ziprasidone Hcl [Geodon] 80 mg PO BID 07/24/15 [History Last Taken 08/27/22 08:00] pantoprazole 40 mg tablet,delayed release 40 mg PO DAILY 07/24/15 [History Last Taken 08/27/22 08:00] lamotrigine 200 mg tablet,extended release 24 hr 300 mg PO QHS 08/16/18 [History Last Taken 08/26/22] albuterol sulfate 90 mcg/actuation aerosol inhaler (Ventolin HFA) 2 puff inhalation Q4H PRN SOB 08/20/22 [History Last Taken 08/26/22] gabapentin 100 mg capsule 100 mg PO DAILY 08/20/22 [History Last Taken 08/27/22 08:00] loratadine 10 mg capsule 10 mg PO DAILY 08/20/22 [History Last Taken 08/26/22] omega-3 fatty acids 1,000 mg capsule 1,000 mg PO DAILY 08/20/22 [History Last Taken 08/22/22] oxycodone 5 mg tablet 5 - 10 mg (1 - 2 x 5 mg) PO Q6H PRN pain 5 days #20 tabs 08/27/22 [Rx Last Taken Unknown] Allergy/AdvReac Type Severity Reaction Status Date / Time aripiprazole [From Abilify] AdvReac Other Verified 09/23/23 21:19 cephalexin monohydrate AdvReac Other Verified 09/23/23 21:19 [From Keflex] levetiracetam [From Keppra] AdvReac Other Verified 09/23/23 21:19 Family History Father Arthritis Heart disease Grandmother Diabetes Kidney disease Mother Heart disease Uncle Hypertension Diabetes Surgical History History of cholecystectomy (~08/2022) Social History Smoking Status: Never smoker EXAM Physical Exam Const Vital Signs: 09/23/23 21:17 09/23/23 21:24 Temperature 97.1 F L Temperature Source Temporal Pulse Rate 110 H Respiratory Rate 18 Respiratory Effort Normal Short of Breath Respiratory Pattern Normal Blood Pressure 152/108 H Blood Pressure Mean 122 Pulse Ox 96 Oxygen Delivery Method Room Air Positive well nourished General Appearance ED: NAD; Negative for pallor HEENT Reports moist mucous membranes normocephalic and atraumatic Throat: posterior oropharynx normal Eyes PERRL Neck no lymphadenopathy and supple Resp normal respiratory effort and clear to auscultation bilaterally Auscultation: Negative for rales, rhonchi or wheezes Cardio Rate: regular rate Rhythm: regular rhythm GI non-tender Extremity normal to inspection Neuro oriented x3 and CN's II-XII intact bilaterally Sensorium / Orientation: alert Motor Exam: strength 5/5 throughout Psych mental status grossly normal Skin General Skin Exam: Negative for jaundice or pallor MDM MDM MDM Narrative Medical decision making narrative: Patient presenting with viral symptoms. Physical exam is unremarkable. Vital signs are stable he is afebrile. Patient given Tylenol 1 g p.o. COVID and influenza are negative. Patient's caregiver counseled that they should give Tylenol and ibuprofen in alternating doses to help with fevers and chills. Return precautions were discussed. Patient states he does not have any nausea and he does not need anything for this. Impression: 1. Viral syndrome Lab Data Attestation: I reviewed the patient's lab results. Discharge Plan Triage Chief Complaint: Cold Sx ED Provider: Oni Maravilla Dx/Rx/DC Orders Instructions: ED Viral Syndrome (Adult) Prescriptions: No Action loratadine 10 mg capsule 10 mg PO DAILY albuterol sulfate [Ventolin HFA] 90 mcg/actuation HFA aerosol inhaler 2 puff inhalation Q4H PRN (Reason: SOB) omega-3 fatty acids 1,000 mg capsule 1,000 mg PO DAILY pantoprazole 40 MG tablet 40 mg PO DAILY Ziprasidone Hcl [Geodon] 80 MG capsule 80 mg PO BID lamotrigine 200 MG tablet extended release 24hr 300 mg PO QHS gabapentin 100 mg capsule 100 mg PO DAILY Patient Comments: take 1 capsule by mouth three times a day oxycodone 5 mg tablet 5 - 10 mg PO Q6H PRN (Reason: pain) 5 Days Qty: 20 0RF Primary Care Provider: Pavan Maharaj Referrals: Pavan Maharaj MD [Primary Care Provider] - Activity Restrictions/Additional Instructions: Please alternate Tylenol and ibuprofen for patient's viral syndrome. This is to control fevers, chills, body aches. Please encourage plenty of oral fluids. Disposition Disposition: Home, Self Care
[2023-09-23] MEDS: Acetaminophen 500 MG Tablet 1000 MG PO (22:58)
== END 2023-09-23 23:06 | disposition home or self-care (01) ==
PROVIDERS: Emergency Provider Student in an Organized Health Care Education/Training Program; PCP Family Medicine; Visit Provider Student in an Organized Health Care Education/Training Program
DX: B34.9 Viral infection, unspecified (principal); G40.909 Epilepsy, unspecified, not intractable, without status epilepticus; K21.9 Gastro-esophageal reflux disease without esophagitis; Z79.899 Other long term (current) drug therapy; F41.8 Other specified anxiety disorders; Z90.49 Acquired absence of other specified parts of digestive tract
CPT/HCPCS: 87428; 99282

== ENCOUNTER → 2023-11-11 | Outpatient (CLI) | payer MEDICAID, SELFPAY ==
[2023-11-11 18:38] LABS: ALB/GLOB Ratio 1.1 RATIO (0.9-2.4); AST(SGOT) 67 U/L (15-37); Alanine Aminotransfer ALT/SGPT 137 U/L (16-61); Alkaline Phosphatase 52 U/L (45-117); Anion Gap 7 (5-15); BUN 14 mg/dL (7-18); BUN/Creat Ratio 12.5 RATIO (10-20); Calcium,Total 8.9 mg/dL (8.5-10.1); Chloride 106 mmol/L (98-107); Cholesterol 255 mg/dL (200); Creatinine, Serum 1.12 mg/dL (0.70-1.30); EST Glomerular Filtration Rate 81 mL/min (>60); Est Glom Filt Rate - Afr Amer 98 mL/min (>60); GGTP 132 U/L (15-85); Globulin 3.6 g/dL (2.2-4.2); Glucose 116 mg/dL (74-106); High Density Lipoprotein 37 mg/dL; Potassium 3.5 mmol/L (3.5-5.1); Protein, Total 7.6 g/dL (6.4-8.2); Sodium Level 139 mmol/L (136-145); Triglycerides 311 mg/dL; Very Low Density Lipoprotein 62 mg/dL (5-40)
[2023-11-11 18:44] LABS: Hemoglobin A1c 5.6 % (3.8-5.6)
--- OUTSIDE RECORDS SUMMARY | 2023-11-11 20:47 | XMS RPT_ITS | CCD ---
Author Name Unknown Address [address] [place] [address] Organization [facility] Care Team Providers Care Electron Gun Assembler Name Role Phone CATHY GARCIA Admitting Unavailable CATHY GARCIA Attending Unavailable CATHY GARCIA Primary Care Unavailable CATHY GARCIA Admitting Unavailable CATHY GARCIA Attending Unavailable CHANDNI PEÑA Primary Care Unavail able Chandni Peña MD Primary Care Provider Chandni Peña MD Primary Care Provider Chandni Peña MD Primary Care Provider Chandni Peña MD Primary Care Provider JENSEN WILLIAMSON Referring Unavailable CHANDNI PEÑA Primary Care Unavailabl e CHANDNI PEÑA Primary Care Unavailabl e CHANDNI PEÑA Primary Care Unavailfinn e CHANDNI PEÑA Primary Care Unavailabl e CHANDNI PEÑA Primary Care Unavailabl e CHANDNI PEÑA Primary Care Unavailabl e Allergies Allergy Classification Reported Allergen(s) Allergy Type Date of Onset Reaction(s) Facility (7 sources) ARIPiprazole; Translations: [ARIPIPRAZOLE] Drug Allergy 11-12-2007 Intolerance [facility] Work Phone: (7 sources) Cephalexin; Translations: [CEPHALEXIN] Drug Allergy 08-15-2018 Other: See Comments [facility] (7 sources) levETIRAcetam; Translations: [LEVETIRACETAM] Drug Allergy 01-24-2022 Other: See Comments [facility] Medications Current Medications Medication Drug Class(es) [...] Drug Class(es) Dates Sig (Normalized) Sig (Original) [id number] 200 actuat albuterol 0.09 mg/actuat metered dose [...] 97.39 [degF] Eliane Clark PA-C Work Phone: [facility] 11-20-2022 14:26-050 Body weight 150.78 kg Eliane Clark PA-C Work Phone: [facility] 11-20-2022 14:26-0500 Diastolic blood pressure 74 mm[Hg] Eliane Athy PA-C Work Phone: [facility] 11-20-2022 14:26-0500 Heart rate 70 /min Eliane Athy PA-C Work Phone: [facility] 11-20-2022 14:26-0500 Respiratory rate 21 /min Eliane Athy PA-C Work Phone: [facility] 11-20-2022 14:26-0500 SaO2% (BldA) [Mass fraction] 97 % Eliane Athy PA-C Work Phone: [facility] 11-20-2022 14:26-0500 Systolic blood pressure 124 mm[Hg] Eliane Athy PA-C Work Phone: [facility] 07-15-2022 12:08-0400 Body temperature 100.6 [degF] Pancho Palomino MD Work Phone: [facility] 07-15-2022 12:08-0400 Body weight 155.58 kg Pancho Palomino MD Work Phone: [facility] 07-15-2022 12:08-0400 Diastolic blood pressure 80 mm[Hg] Pancho Palomino MD Work Phone: [facility] 07-15-2022 12:08-0400 Heart rate 122 /min Pancho Palomino MD Work Phone: [facility] 07-15-2022 12:08-0400 Respiratory rate 20 /min Pancho Palomino MD Work Phone: [facility] 07-15-2022 12:08-0400 SaO2% (BldA) [Mass fraction] 96 % Pancho Palomino MD Work Phone: [facility] 07-15-2022 12:08-0400 Systolic blood pressure 128 mm[Hg] Pancho Palomino MD Work Phone: [facility] 05-24-2022 12:38-0400 Body temperature 100.8 [degF] Sherry Tunde BEAUTY PARLOR CLEANER.TUTORING MANAGER Work Phone: [facility] 05-24-2022 12:38-0400 Body weight 152.41 kg Sherry Tunde BEAUTY PARLOR CLEANER.TUTORING MANAGER Work Phone: [facility] 05-24-2022 12:38-0400 Diastolic blood pressure 78 mm[Hg] Sherry Tunde BEAUTY PARLOR CLEANER.TUTORING MANAGER Work Phone: [facility] 05-24-2022 12:38-0400 Heart rate 106 /min Sherry Tunde BEAUTY PARLOR CLEANER.TUTORING MANAGER Work Phone: [facility] 05-24-2022 12:38-0400 Respiratory rate 18 /min Sherry Tunde BEAUTY PARLOR CLEANER.TUTORING MANAGER Work Phone: [facility] 05-24-2022 12:38-0400 SaO2% (BldA) [Mass fraction] 95 % Sherry Tunde BEAUTY PARLOR CLEANER.TUTORING MANAGER Work Phone: [facility] 05-24-2022 12:38-0400 Systolic blood pressure 132 mm[Hg] Sherry Tunde BEAUTY PARLOR CLEANER.TUTORING MANAGER Work Phone: [facility] 02-22-2022 10:01-0400 Body temperature 98.01 [degF] Jensen Williamson BEAUTY PARLOR CLEANER.TUTORING MANAGER Work Phone: [facility] 02-22-2022 10:01-0400 Body weight 158.31 kg Jensen Williamson BEAUTY PARLOR CLEANER.TUTORING MANAGER Work Phone: [facility] 02-22-2022 10:01-0400 Diastolic blood pressure 80 mm[Hg] Jensen Williamson BEAUTY PARLOR CLEANER.TUTORING MANAGER Work Phone: [facility] 02-22-2022 10:01-0400 Heart rate 87 /min Jensen Williamson BEAUTY PARLOR CLEANER.TUTORING MANAGER Work Phone: [facility] 02-22-2022 10:01-0400 Respiratory rate 16 /min Jensen Williamson BEAUTY PARLOR CLEANER.TUTORING MANAGER Work Phone: [facility] 02-22-2022 10:01-0400 SaO2% (BldA) [Mass fraction] 97 % Jensen Clay BEAUTY PARLOR CLEANER.TUTORING MANAGER Work Phone: [facility] 02-22-2022 10:01-0400 Systolic blood pressure 138 mm[Hg] Jensen Williamson APRN.TUTORING MANAGER Work Phone: [facility] Encounters Encounter Date Encounter Type Care Provider Facility Start: 11-20-2022 End: 11-20-2022 ambulatory CHANDNI PEÑA Facility:[facility] Start: 11-20-2022 End: 11-20-2022 Patient encounter procedure Eliane Clark PA-C Work Phone: [facility] Procedures Date Procedure Procedure Detail Performing Clinician Start: 11-20-2022 COVID WITH FLUA+B, ROUTINE Eliane Clark PA-C Work Phone: Start: 11-20-2022 STREP A MOLECULAR (POC) Eliane Clark PA-C Work Phone: Plan of Treatment Date Care Activity Detail Author Start: 09-22-2022 DEPRESSION ASSESSMENT DEPRESSION ASSESSMENT [facility] Start: 07-15-2022 End: 07-29-2022 Influenza virus A and B RNA and SARS-CoV-2 (COVID-19) N gene panel - Respiratory specimen by ANTWAN with probe detection COVID WITH FLUA+B, ROUTINE Microbiology Routine URI, acute Expected: 07/15/2022, Expires: 07/29/2022 [facility] Work Phone: Payers Date Payer Category Payer Medicaid MEDICAID [facility] MEDICAID [id number] 2021-Present [phone] [address] [place] [address] Medicaid [id number] 2021 Medicaid MEDICAID [facility] MEDICAID [id number] 2021-Present [phone] [address] [place] [address] Medicaid [id number] 1992 Unknown [id number] 1992 Unknown [id number] 1959 Medicaid [id number] Social History Date Type Detail Facility Start: 01-24-2022 End: 07-15-2022 Tobacco smoking status NHIS Never smoked tobacco [facility] Start: 01-24-2022 End: 07-15-2022 Tobacco use and exposure Smokeless tobacco non-user [facility] Start: 02-22-2022 End: 11-20-2022 Alcohol intake Lifetime non-drinker (finding) [facility] Start: 01-24-2022 History SDOH Alcohol Frequency 1 [facility] Start: 1990 Sex Assigned At Not on file C [facility] Start: 02-12-2022 End: 07-15-2022 Exposure to SARS-CoV-2 (event) Not sure [facility] Work Phone: Clinical Notes 01-24-2022 to 11-20-2022 Eliane Clark PA-C - 11/20/2022 3:03 PM ESTTelephone Encounter - Kemi Merino - 07/16/2022 7:57 AM EDTTelephone Encounter - Eliane Clark PA-C - 07/16/2022 7:43 AM EDTPatient Instructions Note Date & Type Note Facility 11-20-2022 Note HNO ID: [id number] Author: Eliane Clark PA-C Service: ? Author Type: Physician Director Of Compliance Type: Progress Notes Filed: 11/20/2022 3:05 PM Note Text: This note was created using Primordialriter. Subjective Gregory Miller is a 32 year old male. HPI Patient presents with cough and chest congestion over the past day. He also has had a scratchy throat and postnasal drip. No fever. No trouble breathing. No vomiting. He did have some diarrhea over the weekend but that has resolved. He lives in a jail and they would like COVID ruled out. [...] negative strep test here. Eliane Clark PA-C [facility] 11-20-2022 History of Presen t illness Narrative This note was created using Primordialriter. Subjective Gregory Miller is a 32 year old male. HPI Patient presents with cough and chest congestion over the past day. He also has had a scratchy throat and postnasal drip. No fever. No trouble breathing. No vomiting. He did have some diarrhea over the weekend but that has resolved. He lives in a jail and they would like COVID ruled out. [...] Eliane Clark PA-C documented in this encounter [facility] 07-16-2022 Miscellaneous Notes Patient given results and verbalized understanding of instructions given. Kemi Merino Let patient know their covid19/influenza test was negative. documented in this encounter [facility] 07-15-2022 Influenza virus A and B RNA and SARS-CoV-2 (COVID-19) N gene panel ANTWAN+probe (Resp) COVID 19 RESULT: SARS-CoV-2 (Agent of COVID-19) Not Detected by RT-PCR or equivalent method. [id number] (JOCELYN)_EUA This test was developed and its performance characteristics determined by [facility]'s [facility] [place]. This test has been authorized by FDA under an Emergency Use Authorization (EUA). This test has been validated in accordance with the FDA's Guidance Document Policy for Diagnostics Testing in Laboratories Certified to Perform High Complexity Testing under CLIA prior to Emergency use Authorization for Coronavirus Disease 2019 during the Public Health Emergency issued on November 20, 2019. Test performed by [facility], [facility] [place], [address] [place] [address]. INFLUENZA A PCR: Negative for Influenza A by RT-PCR INFLUENZA B PCR: Negative for Influenza B by RT-PCR [facility] URI with cough and congestion- Primary Fever, unspecified fever cause Suspected COVID-19 virus infection URI, acute Acute upper respiratory infections of unspecified site Seasonal allergic rhinitis due to other allergic trigger [facility] Diagnosis URI, acute- Primary Acute upper respiratory infections of unspecified site [facility] Diagnosis Viral URI with cough- Primary Acute upper respiratory infections of unspecified site documented in this encounter [facility] Summary Purpose Family History No Family [...] DATE CREATED AUTHOR AUTHOR'S ORGANIZ ATION 11/22/2022 [facility] Source Comments (unrecognize d section and content) In the event this informatio n is protected by the Federal Confidentiality of Alcohol and Drug Abuse Patient Records regulations: The Federal rules restrict any use of the information to criminally investigate or prosecute any alcohol or drug abuse patient.[facility] the event this information is protected by the Federal Confidentiality of Alcohol and Drug Abuse Patient Records regulations: The Federal rules restrict any use of the information to criminally investigate or prosecute any alcohol or drug abuse patient.[facility] the event this information is protected by the Federal Confidentiality of Alcohol and Drug Abuse Patient Records regulations: The Federal rules restrict any use of the information to criminally investigate or prosecute any alcohol or drug abuse patient.[facility] the event this information is protected by the Federal Confidentiality of Alcohol and Drug Abuse Patient Records regulations: The Federal rules restrict any use of the information to criminally investigate or prosecute any alcohol or drug abuse patient.[facility] the event this information is protected by the Federal Confidentiality of Alcohol and Drug Abuse Patient Records regulations: The Federal rules restrict any use of the information to criminally investigate or prosecute any alcohol or drug abuse patient.[facility] the event this information is protected by the Federal Confidentiality of Alcohol and Drug Abuse Patient Records regulations: The Federal rules restrict any use of the information to criminally investigate or prosecute any alcohol or drug abuse patient.[facility] Reason for Visit (unrecogniz ed section and content) Reason Comments Results Reason Comments Cough Cough, sneezing and LARIOS - symptoms started last night Reason Comments Cough congestion, headache and sore throat x 1 day Reason Comments Sore Throat Cough, LARIOS x 2 days Care Teams (unrecognized sec tion and content) Electron Gun Assembler Relationship Specialty Start Date End Date Chandni Peña MD [address] [facility], [place] [id number] PCP - General Family Practice 01/24/22 Electron Gun Assembler Relationship Specialty Start Date End Date Chandni Peña MD [address] [facility] [place], [place] [id number] PCP - General Family Practice 01/24/22 Electron Gun Assembler Relationship Specialty Start Date End Date Chandni Peña MD [address] [facility] [place] [id number] PCP - General Family Medicine 01/24/22 Electron Gun Assembler Relationship Specialty Start Date End Date Chandni Peña MD [address] [facility] [place], [place] [id number] PCP - General Family Medicine 01/24/22 FOR [...] BE BASED ON THE PRIMARY CLINICAL RECORDS. [facility]. provides no warranty or guarantee of the accuracy or completeness of information in this document.
== END | disposition home or self-care (01) ==
LOC: MFPLAB 16:12
PROVIDERS: PCP Family Medicine; Visit Provider Family Medicine
DX: R79.89 Other specified abnormal findings of blood chemistry (principal); E66.9 Obesity, unspecified; E78.00 Pure hypercholesterolemia, unspecified
CPT/HCPCS: 36415; 80053; 80061; 82977; 83036

== ENCOUNTER 2024-02-03 15:02 | Outpatient (RCR) | payer MEDICAID, SELFPAY | END 2024-02-20 23:59 | LOC: NS 15:02 | PROVIDERS: PCP Family Medicine; Referring Provider Family Medicine; Visit Provider Family Medicine | DX: Z71.3 Dietary counseling and surveillance (principal); E66.9 Obesity, unspecified; Z68.43 Body mass index [BMI] 50.0-59.9, adult | CPT/HCPCS: 97802 ==

== ENCOUNTER 2024-03-01 15:28 | Outpatient (RCR) | payer MEDICAID, SELFPAY | END 2024-03-21 23:59 | LOC: NS 15:28 | PROVIDERS: PCP Family Medicine; Referring Provider Family Medicine; Visit Provider Family Medicine | DX: Z71.3 Dietary counseling and surveillance (principal); E66.9 Obesity, unspecified; Z68.43 Body mass index [BMI] 50.0-59.9, adult | CPT/HCPCS: 97803 ==

== ENCOUNTER 2024-04-12 17:00 | Outpatient (RCR) | payer MEDICAID, SELFPAY | END 2024-04-21 23:59 | LOC: NS 17:00 | PROVIDERS: PCP Family Medicine; Referring Provider Family Medicine; Visit Provider Family Medicine | DX: Z71.3 Dietary counseling and surveillance (principal); E66.9 Obesity, unspecified; Z68.43 Body mass index [BMI] 50.0-59.9, adult | CPT/HCPCS: 97803 ==

== ENCOUNTER → 2024-04-27 | Outpatient (CLI) | payer MEDICAID, SELFPAY ==
[2024-04-27 17:58] LABS: Absolute Lymphocyte Count 2.87 X10^3/uL (0.83-4.51); Absolute Neutrophil Count 3.7 X10^3/uL (2.0-7.7); Basophil# 0.06 X10^3/uL; Basophil% 0.8 % (0-1); Eosinophil# 0.35 X10^3/uL; Eosinophils% 4.5 % (0-5); Hematocrit 43.9 % (40-54); Hemoglobin 14.4 g/dL (13.0-16.5); Lymphocyte # 2.87 X10^3/ul (0.83-4.51); Lymphocyte % 37.1 % (19-41); Mean Corp Hgb Conc 32.8 g/dL (32-36); Mean Corpuscular Hgb 27.4 pg (27.0-32.0); Mean Corpuscular Volume 83.5 fL (80-94); Mean Platelet Vol. 9.6 fl (6.2-12.0); Monocyte# 0.69 X10^3/uL; Monocyte% 8.9 % (0-10); NRBC Flagged by Analyzer 0 % (0-5); Neutrophil # 3.73 X10^3/uL (2.7-7.7); Neutrophil % 48.3 % (47-70); Platelet Count 217 K/mm3 (150-450); RBC Distribution Width CV 12.2 % (11.6-14.6); RBC Distribution Width SD 37.1 fl (35.1-43.9); Red Blood Count 5.26 M/mm3 (4.6-6.2); White Blood Count 7.7 K/mm3 (4.4-11.0)
[2024-04-27 18:40] LABS: AST(SGOT) 46 U/L (15-37); Alanine Aminotransfer ALT/SGPT 108 U/L (16-61); Albumin, Serum 3.8 g/dL (3.2-5.0); Alkaline Phosphatase 56 U/L (45-117); Anion Gap 7 (5-15); BUN 15 mg/dL (7-18); Calcium,Total 8.9 mg/dL (8.5-10.1); Chloride 107 mmol/L (98-107); Creatinine, Serum 1.07 mg/dL (0.70-1.30); EST Glomerular Filtration Rate 85 mL/min (>60); Est Glom Filt Rate - Afr Amer 103 mL/min (>60); Ferritin 88 ng/mL (26-388); Globulin 3.8 g/dL (2.2-4.2); Glucose 93 mg/dL (74-106); Potassium 3.9 mmol/L (3.5-5.1); Protein, Total 7.6 g/dL (6.4-8.2); Sodium Level 140 mmol/L (136-145); Thyroid Stim Hormone (TSH) 1.95 uIU/mL (0.358-3.74)
[2024-04-29 04:07] LABS: GGTP 84 IU/L (0-65)
== END | disposition home or self-care (01) ==
PROVIDERS: PCP Family Medicine; Referring Provider Family Medicine; Visit Provider Family Medicine
DX: K76.0 Fatty (change of) liver, not elsewhere classified (principal)
CPT/HCPCS: 80053; 82728; 82977; 84443; 85025

== ENCOUNTER 2024-05-18 16:01 | Outpatient (RCR) | payer MEDICAID, SELFPAY | END 2024-05-22 23:59 | LOC: NS 16:01 | PROVIDERS: PCP Family Medicine; Referring Provider Family Medicine; Visit Provider Family Medicine | DX: E66.9 Obesity, unspecified (principal); Z71.3 Dietary counseling and surveillance; Z68.43 Body mass index [BMI] 50.0-59.9, adult | CPT/HCPCS: 97803 ==

== ENCOUNTER 2024-06-22 16:09 | Outpatient (RCR) | payer MEDICAID, SELFPAY | END 2024-07-22 23:59 | LOC: NS 16:09 | PROVIDERS: PCP Family Medicine; Referring Provider Family Medicine; Visit Provider Family Medicine | DX: Z71.3 Dietary counseling and surveillance (principal); E66.9 Obesity, unspecified; Z68.43 Body mass index [BMI] 50.0-59.9, adult | CPT/HCPCS: 97803 ==

== ENCOUNTER 2024-07-26 16:04 | Outpatient (RCR) | payer MEDICAID, SELFPAY | END 2024-08-21 23:59 | LOC: NS 16:04 | PROVIDERS: PCP Family Medicine; Referring Provider Family Medicine; Visit Provider Family Medicine | DX: Z71.3 Dietary counseling and surveillance (principal); E66.9 Obesity, unspecified; Z68.43 Body mass index [BMI] 50.0-59.9, adult | CPT/HCPCS: 97803 ==

== ENCOUNTER 2024-08-30 15:57 | Outpatient (RCR) | payer MEDICAID, SELFPAY | END 2024-09-21 23:59 | LOC: NS 15:57 | PROVIDERS: PCP Family Medicine; Referring Provider Family Medicine; Visit Provider Family Medicine | DX: Z71.3 Dietary counseling and surveillance (principal); E66.9 Obesity, unspecified; Z68.43 Body mass index [BMI] 50.0-59.9, adult | CPT/HCPCS: 97803 ==

== ENCOUNTER 2024-10-05 15:57 | Outpatient (RCR) | payer MEDICAID, SELFPAY | END 2024-10-22 23:59 | LOC: NS 15:57 | PROVIDERS: PCP Family Medicine; Referring Provider Family Medicine; Visit Provider Family Medicine | DX: Z71.3 Dietary counseling and surveillance (principal); E66.9 Obesity, unspecified; Z68.43 Body mass index [BMI] 50.0-59.9, adult | CPT/HCPCS: 97803 ==